=== PATIENT | male | born 1960 ===

== ENCOUNTER 2017-06-18 07:53 | Day surgery (SDC) | payer BC ==
[2017-06-14 18:28] VITALS: BMI 28.5
[~2017-06-18 07:53] MED LIST: LACTATED RINGERS 1,000 ML IV SCH
[2017-06-18 08:16] VITALS: RESP 16; TEMP 98.1
[2017-06-18] MEDS ORDERED: LIDOCAINE 1% 20 ML VIAL (10MG/ML) FOR IV START INTRADERMA ONE (08:32)
[2017-06-18] MEDS ORDERED: PROPOFOL 10 MG/ML 20 ML VIAL IV ONE (09:27)
[2017-06-18] MEDS ORDERED: LIDOCAINE 1% INJ 10MG/ML (20 ML MDV) ONE (09:27)
[2017-06-18] MEDS ORDERED: GLYCOPYRROLATE 0.2 MG/ML 2 ML VIAL ONE (09:27)
[2017-06-18 10:18] VITALS: PULSE 54
[2017-06-18 10:29] VITALS: BP 130/83
--- NOTE | 2017-06-18 13:32 | P.PCN ---
Date of Procedure: 06/18/17 Procedure(s) Performed: Procedure: Colonoscopy and biopsy. 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 Sigmoid diverticulosis. No polyps or cancer. Preparation: HalfLytely prep. Sedation: Was provided by anesthesia. Brief clinical history: The patient is a 57-year-old male who was diagnosed with proctosigmoiditis in the early 80s. Initial received Azulfidine and later asacol/delzicol with fair control of his symptoms. In the past, he was able to control his exacerbations by increasing the dose of his mesalamine preparations. This year he has been having issues since the beginning of the year and he has required oral steroids earlier this year and more recently he has been on hold an enema advanced without control of his symptoms. He is currently on that of the colon 400 mg 3 capsules 3 times a day as well as "enemas and has been having 2-4 bowel movements and has been seeing blood and mucus. His last colonoscopy was in November 2013 and that showed mild proctosigmoiditis distal to 40 cm. Procedure: With the patient on his left lateral decubitus position and after informed consent and adequate sedation the perianal area was inspected and it did not show any fissures or fistulas. There were no masses felt on digital rectal examination. The Olympus CFQ 160L video colonoscope was then inserted in the rectum in the usual fashion and advanced to the cecum. The distal 45 cm which includes the rectum and mid/distal sigmoid showed edema, erythema, friability, ulceration, exudation but no spontaneous bleeding. There were several diverticular orifices seen scattered in the sigmoid with no evidence of strictures or spontaneous bleeding. Proximal to 45 [address] the way to the cecum the mucosa appeared healthy. No polyps or tumors were seen. I obtained multiple biopsies in the sigmoid than the endoscope was retroflexed in the rectum before it was withdrawn. The patient tolerated the procedure well. Plan: I discussed the findings with the patient and his and we discussed in detail her concerns regarding diet and possible dietary and lifestyle triggers. I emphasized that based on his course since August last year he has not been responding to mesalamine and has been requiring steroids either orally or by enemas. I suggested that I see him in follow-up this month and review his course and biopsy results and consider starting immunosuppressants. Discussed role of Biologics as well. I will keep you updated on his progress.
== END 2017-06-18 10:45 | disposition home or self-care (01) ==
LOC: ORWHC2ENDO 07:53
DX: K51.80 Other ulcerative colitis without complications (principal); I10 Essential (primary) hypertension; E78.5 Hyperlipidemia, unspecified; Z79.899 Other long term (current) drug therapy
CPT/HCPCS: 88305; 45380; J2001; J2704

== ENCOUNTER → 2017-09-06 | Outpatient (CLI) | payer BC ==
[2017-09-06 15:51] LABS: Basophils # (A) 0.1 k/uL (0-0.2); Basophils % (A) 1 %; CH 30.5; CHCM 32.8; Eosinophils # (A) 0.1 k/uL (0-0.7); Eosinophils % (A) 1 %; HCT 45.2 % (39.0-53.0); HDW 2.32; HGB 14.5 gm/dL (13.0-17.5); Luc # (Auto) 0.18; Luc % (Auto) 2; Lymphocytes # (A) 2.9 k/uL (1.0-4.8); Lymphocytes % (A) 28 %; MCH 30.1 pg (25.0-35.0); MCHC 32.2 g/dL (31.0-37.0); MCV 93.5 fL (80.0-100.0); Mean Platelet Volume 7.7; Monocytes # (A) 0.7 k/uL (0-1.0); Monocytes % (A) 7 %; Neutrophils # (A) 6.3 k/uL (1.3-7.7); Neutrophils % (A) 62 %; RBC 4.84 m/uL (4.30-5.90); RDW 14.1 % (11.5-15.5); WBC 10.3 k/uL (3.8-10.6); WBC (Perox) 11.14
[2017-09-06 16:03] LABS: Bilirubin, Delta 0.1 mg/dL (0.0-0.2); Total Bilirubin 0.4 mg/dL (0.2-1.3); Total Protein 6.7 g/dL (6.3-8.2)
== END | disposition home or self-care (01) ==
LOC: LABWHC1 15:37
DX: K51.20 Ulcerative (chronic) proctitis without complications (principal)
CPT/HCPCS: 36415; 80076; 82150; 83690; 85025

== ENCOUNTER → 2017-10-10 | Outpatient (CLI) | payer BC ==
[2017-10-10 16:09] LABS: Basophils # (A) 0.1 k/uL (0-0.2); Basophils % (A) 1 %; Eosinophils # (A) 0.1 k/uL (0-0.7); Eosinophils % (A) 1 %; HCT 42.7 % (39.0-53.0); Lymphocytes # (A) 3.5 k/uL (1.0-4.8); Lymphocytes % (A) 28 %; MCH 29.4 pg (25.0-35.0); MCHC 32.8 g/dL (31.0-37.0); MCV 89.6 fL (80.0-100.0); Mean Platelet Volume 7.4; Monocytes # (A) 0.9 k/uL (0-1.0); Monocytes % (A) 7 %; Neutrophils # (A) 7.6 k/uL (1.3-7.7); Neutrophils % (A) 61 %; Platelet Count 333 k/uL (150-450); RBC 4.77 m/uL (4.30-5.90); RDW 14.4 % (11.5-15.5); WBC 12.4 k/uL (3.8-10.6)
[2017-10-10 16:19] LABS: ALT 62 U/L (21-72); AST 30 U/L (17-59); Albumin 4.1 g/dL (3.5-5.0); Alkaline Phosphatase 94 U/L (38-126); Anion Gap 9 mmol/L; Bilirubin, Delta 0.2 mg/dL (0.0-0.2); Bilirubin,Unconjugated 0.2 mg/dL (0.0-1.1); Blood Urea Nitrogen 21 mg/dL (9-20); Calcium 9.5 mg/dL (8.4-10.2); Carbon Dioxide 29 mmol/L (22-30); Chloride 104 mmol/L (98-107); Glucose 91 mg/dL (74-99); Sodium 142 mmol/L (137-145); Total Bilirubin 0.4 mg/dL (0.2-1.3); Total Protein 6.9 g/dL (6.3-8.2)
== END | disposition home or self-care (01) ==
LOC: LABWHC1 15:34
DX: K51.30 Ulcerative (chronic) rectosigmoiditis without complications (principal)
CPT/HCPCS: 36415; 80053; 82248; 85025

== ENCOUNTER → 2017-11-27 | Outpatient (CLI) | payer BC ==
[2017-11-27 16:50] LABS: HCT 41.7 % (39.0-53.0); HGB 14.3 gm/dL (13.0-17.5); MCH 30.5 pg (25.0-35.0); MCHC 34.3 g/dL (31.0-37.0); MCV 89.1 fL (80.0-100.0); Mean Platelet Volume 7.2; Platelet Count 318 k/uL (150-450); RBC 4.68 m/uL (4.30-5.90); RDW 13.1 % (11.5-15.5)
[2017-11-27 16:57] LABS: ALT 40 U/L (21-72); AST 30 U/L (17-59); Alkaline Phosphatase 67 U/L (38-126); Anion Gap 9 mmol/L; Blood Urea Nitrogen 21 mg/dL (9-20); C Reactive Protein <5.0 mg/L (<10.0); Calcium 9.4 mg/dL (8.4-10.2); Carbon Dioxide 29 mmol/L (22-30); Chloride 102 mmol/L (98-107); Glucose 91 mg/dL (74-99); Potassium 4.1 mmol/L (3.5-5.1); Sodium 140 mmol/L (137-145); Total Bilirubin 0.5 mg/dL (0.2-1.3); Total Protein 6.8 g/dL (6.3-8.2)
[2017-11-27 18:47] LABS: Erythrocyte Sedimentation Rate 4 mm/hr (0-15)
== END | disposition home or self-care (01) ==
LOC: LABWHC1 15:40
DX: K51.30 Ulcerative (chronic) rectosigmoiditis without complications (principal)
CPT/HCPCS: 36415; 80053; 85027; 85652; 86140

== ENCOUNTER → 2017-12-17 | Outpatient (CLI) | payer BC ==
[2017-12-17 17:42] LABS: HGB 14.1 gm/dL (13.0-17.5); MCH 30.6 pg (25.0-35.0); MCHC 34.4 g/dL (31.0-37.0); Mean Platelet Volume 7.3; Platelet Count 309 k/uL (150-450); RBC 4.61 m/uL (4.30-5.90); RDW 13.2 % (11.5-15.5); WBC 8.6 k/uL (3.8-10.6)
[2017-12-17 18:06] LABS: ALT 57 U/L (21-72); AST 43 U/L (17-59); Albumin 4.1 g/dL (3.5-5.0); Alkaline Phosphatase 69 U/L (38-126); Anion Gap 12 mmol/L; Blood Urea Nitrogen 17 mg/dL (9-20); C Reactive Protein <5.0 mg/L (<10.0); Calcium 9.5 mg/dL (8.4-10.2); Carbon Dioxide 28 mmol/L (22-30); Chloride 104 mmol/L (98-107); Glucose 90 mg/dL (74-99); Potassium 4.5 mmol/L (3.5-5.1); Sodium 144 mmol/L (137-145); Total Bilirubin 0.4 mg/dL (0.2-1.3)
[2017-12-17 18:55] LABS: Erythrocyte Sedimentation Rate 5 mm/hr (0-15)
== END | disposition home or self-care (01) ==
LOC: LABWHC1 17:19
DX: K51.30 Ulcerative (chronic) rectosigmoiditis without complications (principal)
CPT/HCPCS: 36415; 80053; 85027; 85652; 86140

== ENCOUNTER → 2018-01-16 | Outpatient (CLI) | payer BC ==
[2018-01-16 16:32] LABS: HCT 42.8 % (39.0-53.0); HGB 14.3 gm/dL (13.0-17.5); MCH 29.6 pg (25.0-35.0); MCHC 33.4 g/dL (31.0-37.0); MCV 88.6 fL (80.0-100.0); Mean Platelet Volume 7.5; Platelet Count 295 k/uL (150-450); RBC 4.83 m/uL (4.30-5.90); RDW 13.4 % (11.5-15.5); WBC 8.1 k/uL (3.8-10.6)
[2018-01-16 17:13] LABS: ALT 25 U/L (21-72); AST 23 U/L (17-59); Albumin 4.3 g/dL (3.5-5.0); Alkaline Phosphatase 62 U/L (38-126); Anion Gap 10 mmol/L; Blood Urea Nitrogen 16 mg/dL (9-20); C Reactive Protein <5.0 mg/L (<10.0); Calcium 9.5 mg/dL (8.4-10.2); Carbon Dioxide 30 mmol/L (22-30); Chloride 103 mmol/L (98-107); Cholesterol 160 mg/dL (<200); Glucose 93 mg/dL (74-99); HDL Cholesterol 54 mg/dL (40-60); LDL Cholesterol,Calculated 82 mg/dL (0-99); Potassium 4.6 mmol/L (3.5-5.1); Sodium 143 mmol/L (137-145); Total Bilirubin 0.7 mg/dL (0.2-1.3); Total Protein 7.1 g/dL (6.3-8.2); Triglycerides 122 mg/dL (<150)
[2018-01-16 17:40] LABS: PSA Annual Screen 0.74 ng/mL (0.00-4.00)
[2018-01-16 18:53] LABS: Erythrocyte Sedimentation Rate 3 mm/hr (0-15)
== END ==
LOC: LABWHC1 15:39
DX: E78.5 Hyperlipidemia, unspecified (principal); I10 Essential (primary) hypertension; K51.30 Ulcerative (chronic) rectosigmoiditis without complications; Z12.5 Encounter for screening for malignant neoplasm of prostate
CPT/HCPCS: 80061; 80053; 85652; 85027; 86140; 36415; G0103

== ENCOUNTER → 2018-04-23 | Outpatient (CLI) | payer BC ==
[2018-04-23 14:22] LABS: HCT 40.9 % (39.0-53.0); HGB 14.1 gm/dL (13.0-17.5); MCH 31.7 pg (25.0-35.0); MCHC 34.4 g/dL (31.0-37.0); MCV 92.1 fL (80.0-100.0); Mean Platelet Volume 6.8; Platelet Count 250 k/uL (150-450); RBC 4.44 m/uL (4.30-5.90); RDW 13.6 % (11.5-15.5); WBC 5.9 k/uL (3.8-10.6)
[2018-04-23 14:37] LABS: ALT 40 U/L (21-72); AST 28 U/L (17-59); Alkaline Phosphatase 63 U/L (38-126); Anion Gap 8 mmol/L; Blood Urea Nitrogen 18 mg/dL (9-20); Calcium 9.2 mg/dL (8.4-10.2); Carbon Dioxide 26 mmol/L (22-30); Chloride 107 mmol/L (98-107); Glucose 110 mg/dL (74-99); Potassium 4.5 mmol/L (3.5-5.1); Sodium 141 mmol/L (137-145); Total Bilirubin 0.4 mg/dL (0.2-1.3); Total Protein 6.8 g/dL (6.3-8.2)
== END | disposition home or self-care (01) ==
LOC: LABWHC1 13:33
DX: K51.30 Ulcerative (chronic) rectosigmoiditis without complications (principal)
CPT/HCPCS: 36415; 80053; 85027

== ENCOUNTER 2018-08-11 13:28 | Observation (INO) | payer BC ==
[2018-08-11 13:36] VITALS: RESP 16
[2018-08-11] MEDS ORDERED: MORPHINE SULFATE 2 MG/ML SYRINGE IVP STA ×2 (14:23→15:30)
[2018-08-11] MEDS ORDERED: DIAZEPAM 5 MG/ML 2 ML INJ IVP STA ×2 (14:23→16:38)
--- NOTE | 2018-08-11 14:35 | ED ---
Back Pain HPI - General Chief Complaint: Back Pain/Injury Stated Complaint: Back Pain Source: patient Limitations: no limitations - History of Present Illness Initial Comments: This is a 58-year-old male past medical history of hypertension, hyperlipidemia and ulcerative colitis presenting today for chief complaint of "pulled my back out", he states that yesterday he grabbed a picked up a large cabinent, he didnt note much pain at that time. Today pt was in the left when he down to grab a 20 pound box, he states when he stood up he noticed a very sharp pain in his lower back and muscle spasms. He set the box down. Pt states he was able to walk in the house with help of his son. He attempted to lie flat in the bed, however he was unable to get up due to the pain in the lumbar spine, he states that every so often there are spasms in the lumbar spine and a sharp shooting pain in the right LE. Pt denies loss of bowel/bladder control, numbness/ parathesias of the LE, or muscle weakness of the LE, hx of cancer, falling or trauma to the back. Remainder of ROS (-), patient denies any recent fever, chills, shortness of breath, chest pain, abdominal pain, numbness or tingling, dysuria or hematuria, constipation or diarrhea, headaches or visual changes, or any other complaints. Pt was brought to the ER via EMS due to the pain in the back/spasms. Upon arrival pt VS stable. - Related Data Home Medications Medication Instructions Recorded Confirmed Bisoprolol-Hctz 5-6.25 mg [Ziac 1 tab PO DAILY 06/14/17 08/11/18 5-6.25] Mesalamine [Delzicol] 800 mg PO BID 06/14/17 08/11/18 Simvastatin [Zocor] 20 mg PO HS 06/14/17 08/11/18 Cholecalciferol [Vitamin D3] 1,000 unit PO DAILY 08/11/18 08/11/18 azaTHIOprine [Imuran] 150 mg PO DAILY 08/11/18 08/11/18 Allergies Allergy/AdvReac Type Severity Reaction Status Date / Time No Known Allergies Allergy Verified 08/11/18 20:13 Review of Systems ROS Statement: Those systems with pertinent positive or pertinent negative responses have been documented in the HPI. ROS Other: All systems not noted in ROS Statement are negative. Constitutional: Denies: fever, chills, night sweats ENT: Denies: ear pain, throat pain Respiratory: Denies: cough, dyspnea, wheezes Cardiovascular: Denies: chest pain, palpitations Endocrine: Denies: as per HPI Gastrointestinal: Reports: nausea (pain so bad at times causes nausea). Denies : abdominal pain, vomiting, diarrhea, constipation, hematemesis Genitourinary: Denies: urgency, dysuria, frequency, discharge Musculoskeletal: Reports: back pain (lower back pain/spasms) Neurological: Denies: headache, weakness, numbness, paresthesias, confusion, abnormal gait Past Medical History Past Medical History: GI Bleed, Hyperlipidemia, Hypertension Additional Past Medical History / Comment(s): ULCERATIVE COLITIS, HAVING FLARE UP RECENTLY. History of Any Multi-Drug Resistant Organisms: None Reported Additional Past Surgical History / Comment(s): COLONOSCOPIES. Past Anesthesia/Blood Transfusion Reactions: No Reported Reaction Smoking Status: Former smoker - Past Family History Mother Family Medical History: No Reported History General Exam - General Exam Comments Initial Comments: General: The patient is awake and alert, in no distress, and does not appear acutely ill. Eye: Pupils are equal, round and reactive to light, extra-ocular movements are intact. No nystagmus. There is normal conjunctiva bilaterally. No signs of icterus. Ears, nose, mouth and throat: There are moist mucous membranes and no oral lesions. Neck: The neck is supple, there is no tenderness or JVD. Cardiovascular: There is a regular rate and rhythm. No murmur, rub or gallop is appreciated. Respiratory: Lungs are clear to auscultation, respirations are non-labored, breath sounds are equal. No wheezes, stridor, rales, or rhonchi. Gastrointestinal: Soft, non-distended, non-tender abdomen without masses or organomegaly noted. There is no rebound or guarding present. No CVA tenderness. Bowel sounds are unremarkable. Musculoskeletal: No bruising ecchymosis. Pt refuses to range at his lumbar spine secondary to muscle spasm, there is right sided low back tenderness with any ROM. No midline tenderness to palpation of the lumbar/thoracic spine. Strength 5/5 of the LE equally b/l. Sensation intact of the LE equally b/l including the saddle region. DP pulses equal bilaterally 2+. Rectal tone WNL. + 2/5 DTR of the LE, no evidence of myoclonus. Neurological: A&O x 3. CN II-XII intact, There are no obvious motor or sensory deficits. Coordination appears grossly intact. Speech is normal. Skin: Skin is warm and dry and no rashes or lesions are noted. Psychiatric: Cooperative, appropriate mood & affect, normal judgment. Limitations: no limitations Course Vital Signs 08/11/18 08/11/18 08/11/18 13:28 17:14 19:29 Temperature 99 F 98.2 F Pulse Rate 48 L 60 82 Respiratory 16 16 16 Rate Blood Pressure 151/79 121/79 124/74 O2 Sat by Pulse 97 94 L 95 Oximetry 08/11/18 20:00 Temperature Pulse Rate Respiratory 18 Rate Blood Pressure O2 Sat by Pulse Oximetry - Reevaluation(s) Reevaluation #1: Pt now able to bend at the knees without back spasm, improvement from initial exam 08/11/18 Reevaluation #2: Improvement, pt is able to bend knees toward chest without muscle spasm 08/11/18 Medical Decision Making - Medical Decision Making 58yo with cc of low back pain and muscle spasms after lifting box earlier this afternoon. Pt took zanaflex and ibuprofen earlier in the AM. Upon arrival, pt appeared well, however he did have episode of spasms with lasted <1 minute in his lumbar spine. Pt given 5mg IV valium and 2mg morphine for pain mgmt. Pt continued to experience symptoms with flexion at the hip. Given another 5mg IV valium and morphine. Upon physical examination there are no signs worrisome for cauda equina this time, also pt rectal tone WNL and pt is urinating without difficulty. I can palpate a right sided muscle spasms when pt is experiencing symptoms. Patient still continued to have systems despite Valium and morphine, he was given Flexeril and Toradol. Patient went to CT which revealed small bulge vs small herniation at L5-S1 no noted spinal stenosis. All incidental findings were discussed with patient. Upon reeavluation pt states that he is able to move knees toward chest, improvement from initial exam. At this time pt continues to refuse to walk due to muscle spasm, there is no muscle weakness. Pt will be admitted to observation to Dr. Makim, i spoke with Dr. Carrera who gave no further recommendations stating he will evaluate pt in the morning. Pt was transferred to the floor in stable condition with improvement of symptoms. Pt was agreeable with admission for intractable muscle spasms. Denied questions at this time. Case discussed with both Dr. Horner and Dr. De La Fuente prior to admission who agreed with impression and plan. - Lab Data Result diagrams: 08/11/18 18:03 08/11/18 18:03 Lab Results 08/11/18 08/11/18 Range/Units 18:03 18:03 WBC 9.2 (3.8-10.6) k/uL RBC 4.73 (4.30-5.90) m/uL Hgb 14.8 (13.0-17.5) gm/dL Hct 42.6 (39.0-53.0) % MCV 89.9 (80.0-100.0) fL MCH 31.3 (25.0-35.0) pg MCHC 34.8 (31.0-37.0) g/dL RDW 13.2 (11.5-15.5) % Plt Count 232 (150-450) k/uL Neutrophils % 76 % Lymphocytes % 14 % Monocytes % 8 % Eosinophils % 1 % Basophils % 0 % Neutrophils # 7.0 (1.3-7.7) k/uL Lymphocytes # 1.3 (1.0-4.8) k/uL Monocytes # 0.7 (0-1.0) k/uL Eosinophils # 0.1 (0-0.7) k/uL Basophils # 0.0 (0-0.2) k/uL Sodium 139 (137-145) mmol/L Potassium 4.4 (3.5-5.1) mmol/L Chloride 108 H (98-107) mmol/L Carbon Dioxide 24 (22-30) mmol/L Anion Gap 7 mmol/L BUN 19 (9-20) mg/dL Creatinine 0.98 (0.66-1.25) mg/dL Est GFR (CKD-EPI)AfAm >90 (>60 ml/min/1.73 sqM) Est GFR (CKD-EPI)NonAf 85 (>60 ml/min/1.73 sqM) Glucose 108 H (74-99) mg/dL Calcium 9.1 (8.4-10.2) mg/dL Total Bilirubin 0.9 (0.2-1.3) mg/dL AST 27 (17-59) U/L ALT 31 (21-72) U/L Alkaline Phosphatase 49 (38-126) U/L Total Protein 6.7 (6.3-8.2) g/dL Albumin 3.7 (3.5-5.0) g/dL Disposition Clinical Impression: Low back strain, Intractable muscle spasm, Intractable back pain Disposition: ADMITTED IP TO THIS [facility] Condition: Stable Is patient prescribed a controlled substance at d/c from ED?: No Time of Disposition: 19:35 Decision to Admit Reason: Admit from EC Decision Date: 08/11/18 Decision Time: 19:35
--- NOTE | 2018-08-11 15:05 | XR ---
EXAMINATION TYPE: XR lumbar spine 2 or 3V DATE OF EXAM: 08/11/2018 CLINICAL HISTORY: Low back pain after lifting injury TECHNIQUE: Frontal and lateral images of the lumbar spine are obtained. COMPARISON: None FINDINGS: There are 5 lumbar type vertebral bodies identified. There is very minimal retrolisthesis of L2 on L3. Very mild levoscoliotic curvature of the thoracolumbar junction is noted. The remainder of the lumbar spine shows satisfactory alignment without evidence of acute fracture or dislocation. V ertebral body heights and disk space heights are within normal limits. Mild multilevel degenerative c hanges of the lumbar spine are seen as small anterior and lateral osteophytes at the L1-L5 vertebral levels. The overlying soft tissue appears unremarkable. IMPRESSION: No acute fracture is seen in the lumbar spine. Minimal retrolisthesis of L2 on L3, likel y on a degenerative basis. Mild multilevel degenerative changes of the lumbar spine.
[2018-08-11] MEDS ORDERED: KETOROLAC 30 MG/ML 1 ML VIAL IVP STA (16:43)
[2018-08-11 18:15] LABS: Basophils % (A) 0 %; Eosinophils # (A) 0.1 k/uL (0-0.7); Eosinophils % (A) 1 %; HCT 42.6 % (39.0-53.0); HGB 14.8 gm/dL (13.0-17.5); Lymphocytes # (A) 1.3 k/uL (1.0-4.8); Lymphocytes % (A) 14 %; MCH 31.3 pg (25.0-35.0); MCHC 34.8 g/dL (31.0-37.0); MCV 89.9 fL (80.0-100.0); Monocytes # (A) 0.7 k/uL (0-1.0); Monocytes % (A) 8 %; Neutrophils % (A) 76 %; Platelet Count 232 k/uL (150-450); RBC 4.73 m/uL (4.30-5.90); RDW 13.2 % (11.5-15.5); WBC 9.2 k/uL (3.8-10.6)
[2018-08-11 18:41] LABS: ALT 31 U/L (21-72); AST 27 U/L (17-59); Albumin 3.7 g/dL (3.5-5.0); Alkaline Phosphatase 49 U/L (38-126); Anion Gap 7 mmol/L; Blood Urea Nitrogen 19 mg/dL (9-20); Calcium 9.1 mg/dL (8.4-10.2); Carbon Dioxide 24 mmol/L (22-30); Chloride 108 mmol/L (98-107); Glucose 108 mg/dL (74-99); Potassium 4.4 mmol/L (3.5-5.1); Sodium 139 mmol/L (137-145); Total Bilirubin 0.9 mg/dL (0.2-1.3); Total Protein 6.7 g/dL (6.3-8.2)
--- NOTE | 2018-08-11 18:42 | CT ---
EXAMINATION TYPE: CT lumbar spine wo con DATE OF EXAM: 08/11/2018 6:32 PM COMPARISON: Lumbar spine dated 08/11/2018 HISTORY: low back pain, no injury CT DLP: 1045 mGycm Automated exposure control for dose reduction was used. TECHNIQUE: Unenhanced CT of the lumbar spine was performed. Bone and soft tissue window settings are submitted as well as coronal and sagittal reconstructions. FINDINGS: The lumbar spine vertebral bodies maintain normal vertebral body heights and alignment. Min imal multilevel degenerative changes of the lumbar spine are displayed as small anterior osteophytes and endplate sclerosis as well as lower lumbar spine facet arthropathy. The previously seen minimal r etrolisthesis of L2 on L3 with positional and not redemonstrated on CT. A very mild levoscoliotic cur vature of the lumbar spine is present. Minimal bibasilar dependent atelectasis is seen at the lung bases. Nonobstructing punctate 2 mm right upper pole renal calculus is seen. Mild atherosclerosis of the abdominal aorta and its branches are noted. L1-L2: Normal disc space height. No disc herniation protrusion or central stenosis. No facet joint arthropathy. No evidence for foraminal encroachment. L2-L3: There is a small broad-based disc bulge resulting in mild bilateral neural foraminal narrowing . No spinal canal stenosis. Recommended phenomenon is seen. L3-L4: There is a small broad-based disc bulge and minimal facet arthropathy resulting in mild bilate ral neural foraminal narrowing. No spinal canal stenosis. L4-L5: Vacuum disc phenomenon is seen. There is a broad-based disc bulge and facet arthropathy result ing in moderate left and [id number] right neural foraminal narrowing. No discrete spinal canal stenosis. L5-S1: There is a disc bulge versus small central disc herniation that would be better evaluated with MRI and mild facet arthropathy resulting in mild left neural foraminal narrowing. Spinal canal and r ight neural foramen are patent. IMPRESSION: 1. No evidence of acute fracture or malalignment of the lumbar spine. The previously seen minimal ret rolisthesis of L2 on L3 on the radiographs of 08/11/2018 was positional and not redemonstrated. 2. Mild multilevel degenerative changes of the lumbar spine. No evidence of spinal canal stenosis on CT. Disc bulge versus small disc herniation at L5-S1 without spinal canal stenosis. This would be bet ter evaluated with MRI. 3. Incidentally seen punctate nonobstructing right renal calculus.
[2018-08-11] MEDS ORDERED: DEXAMETHASONE SOD PHOSPHATE 4 MG/ML 1 ML VIAL IV STA (19:26)
[2018-08-11] MEDS ORDERED: ACETAMINOPHEN TAB 325 MG TAB PO PRN (19:27)
[2018-08-11] MEDS ORDERED: NALOXONE 0.4 MG/ML 1 ML VIAL IV PRN (19:27)
[2018-08-11] MEDS ORDERED: MORPHINE SULFATE 4 MG/ML SYRINGE IV PRN (19:27)
[2018-08-11] MEDS ORDERED: SODIUM CHLORIDE 0.9% 1,000 ML IV ONE (19:30)
[2018-08-11 21:50] VITALS: BMI 31.1
[2018-08-12] MEDS: CYCLOBENZAPRINE 10 MG TAB PO SCH ×4 (00:10→23:21)
[2018-08-12] MEDS: HYDROmorphone 1 MG/ML 1 ML SYRINGE IVP PRN ×2 (00:10→12:34)
[2018-08-12] MEDS: methylPREDNISolone SOD SUCCI 125 MG/2 ML VIAL IV SCH ×3 (09:22→23:29)
--- NOTE | 2018-08-12 10:56 | P.HPOR ---
<ItaloJayshree - Last Filed: 08/12/18 10:47> History of Present Illness H&P Date: 08/12/18 Chief Complaint: Low back pain and lower extremity radiculopathy This is a 58-year-old male who sustained injury to his low back when he was lifting a 100 pound chest. He states that he had no symptoms immediately after lifting the chest. However, he then lifted a 20 pound box of [place] [employer] and felt immediate pain down his back and into his legs. He was unable to move. He was able to get down the ladder with help with his son. He came to the emergency department for evaluation. He is admitted to our service for further evaluation and pain management. He denies bowel or bladder dysfunction. He denies numbness or tingling down the legs. He has been unable to ambulate since his admission secondary to pain. Past Medical History Past Medical History: GI Bleed, Hyperlipidemia, Hypertension Additional Past Medical History / Comment(s): ULCERATIVE COLITIS, HAVING FLARE UP RECENTLY. History of Any Multi-Drug Resistant Organisms: None Reported Past Surgical History: No Surgical Hx Reported Additional Past Surgical History / Comment(s): COLONOSCOPIES. Past Anesthesia/Blood Transfusion Reactions: No Reported Reaction Smoking Status: Former smoker - Past Family History Mother Family Medical History: No Reported History Medications and Allergies Home Medications Medication Instructions Recorded Confirmed Type Bisoprolol-Hctz 5-6.25 mg [Ziac 1 tab PO DAILY 06/14/17 08/11/18 History 5-6.25] Mesalamine [Delzicol] 800 mg PO BID 06/14/17 08/11/18 History Simvastatin [Zocor] 20 mg PO HS 06/14/17 08/11/18 History Cholecalciferol [Vitamin D3] 1,000 unit PO DAILY 08/11/18 08/11/18 History azaTHIOprine [Imuran] 150 mg PO DAILY 08/11/18 08/11/18 History Allergies Allergy/AdvReac Type Severity Reaction Status Date / Time No Known Allergies Allergy Verified 08/11/18 20:13 Physical Examination This is a pleasant 58-year-old male in no acute distress. He is alert and oriented 3. Exam of the head neck reveal no obvious deformity. He has full cervical spine motion without difficulty or pain. Exam the upper extremities is unremarkable. He has full motion of the upper extremities at the shoulder, elbow, wrist and fingers. Neurovascular status to the upper extremities is intact. Exam of the low back reveals no obvious deformity. There is mild pain on palpation about the lower lumbar spine and paraspinal musculature. Exam of the lower extremities reveals no obvious deformity. There is no pain with log roll of either hip. He is able to straight leg raise off the bed independently with significant pain. He has full dorsiflexion of the foot and ankle bilaterally with +4/5 strength. Plantar flexion is +4/5. Pedal pulses are +2/4. Neurovascular status to the lower extremities is intact. Results X-ray and CT of the lumbar spine reveal mild degenerative changes throughout. Fairly well maintained disc spaces. No obvious canal stenosis noted. - Labs Labs: Abnormal Lab Results - Last 24 Hours (Table) 08/11/18 Range/Units 18:03 Chloride 108 H (98-107) mmol/L Glucose 108 H (74-99) mg/dL H & H 08/11/18 Range/Units 18:03 Hgb 14.8 (13.0-17.5) gm/dL Hct 42.6 (39.0-53.0) % Result Diagrams: 08/11/18 18:03 08/11/18 18:03 Assessment and Plan (1) Intractable back pain Current Visit: Yes Status: Acute Code(s): M54.9 - DORSALGIA, UNSPECIFIED SNOMED Code(s): 098992144 (2) Intractable muscle spasm Current Visit: Yes Status: Acute Code(s): M62.40 - CONTRACTURE OF MUSCLE, UNSPECIFIED SITE SNOMED Code(s): 17338114 (3) Low back strain Current Visit: Yes Status: Acute Code(s): S39.012A - STRAIN OF MUSCLE, FASCIA AND TENDON OF LOWER BACK, INIT SNOMED Code(s): 970888927 Plan: The clinical and x-ray findings are discussed the patient and his . It is recommended he have an MRI for further evaluation. I have added Solu-Medrol 80 mg IV every 8 hours 3 doses. We will await MRI findings. We'll consult Dr. Gandhi for evaluation. <Daniel Gandhi - Last Filed: 08/12/18 16:32> Physical Examination Osteopathic Statement: *. No significant issues noted on an osteopathic structural exam other than those noted in the History and Physical/Consult. Results - Labs Labs: Abnormal Lab Results - Last 24 Hours (Table) 08/11/18 Range/Units 18:03 Chloride 108 H (98-107) mmol/L Glucose 108 H (74-99) mg/dL H & H 08/11/18 Range/Units 18:03 Hgb 14.8 (13.0-17.5) gm/dL Hct 42.6 (39.0-53.0) % Result Diagrams: 08/11/18 18:03 08/11/18 18:03 Assessment and Plan Plan: The patient was seen and examined today at bedside. I reviewed the above dictation. The patient underwent his MRI of his lumbar spine and I reviewed the images and the report as well. Low back pain with right lower extremity radiculopathy Herniated nucleus pulposus L2 3 which appears new Degenerative disc disease L4 5 with left foraminal encroachment Herniated nucleus pulposis L2-3 on the right which correlates well with his right lower extremity radiculopathy I think the patient's new acute symptoms stem from an acute injury with new disc herniation at L2-3. He is a right paracentral disc herniation as seen on MRI at the level LII-III correlates with his new symptoms in his right extremity and right thigh. He is unable to get up and mobilize due to his pain but his strength appears to be intact while he is in bed. He is not having any evidence of cauda equina syndrome. I think it is okay for him to start to mobilize and will have physical therapy see him to try to increase his mobilization. I would also like pain management to consult on him to Determine the possibility of interventional pain management for epidural steroid injection at L2-3. He has made some progress with his management with IV steroids and feels that he is making some improvement. He still having great copiously trying to move in bed or try to get up and we'll see if this is improved with physical therapy. Height is difficult to determine if he would be safe with discharged home today but he may be able to consider discharge home tomorrow if he is safe with getting up with physical therapy and the pain is better controlled. We will continue to follow them closely. We do not plan acute surgical intervention as he is essentially neurologically stable at this point but he would be a candidate for laminectomy discectomy L2- 3 on outpatient basis if conservative measures were to fail. I do not think that is able to work at this point and he will need off work status the time being.
--- NOTE | 2018-08-12 12:17 | MR ---
EXAMINATION TYPE: MR lumbar spine wo con DATE OF EXAM: 08/12/2018 COMPARISON: Prior CT lumbar spine and x-ray from yesterday. HISTORY: Intractable low back pain and radiculopathy TECHNIQUE: Multiplanar, multisequence imaging of the lumbar spine is performed without IV contrast. FINDINGS: Sagittal images of the lumbar spine show vertebral body heights and alignment to remain sat isfactory. Multilevel disc desiccation is present. There is mild to moderate disc space narrowing L2- L3 and L4-L5 levels redemonstrated. Posterior disc herniations are seen L2-L3 and L5-S1 levels on sag ittal images. Increased signal posteriorly consistent with annular tear is noted L5-S1 level. The con us medullaris is normal in position and signal ending at L1 level. Some heterogeneous endplate change s most prominent anterior L2-L3 level with Modic type II change is noted. Axial images show the T12-L1 level to appear within normal limits. Axial images at the L1-L2 level shows focal left foraminal/extra foraminal disc protrusion with annul ar tear axial image 23 causing asymmetric mild left-sided neural foraminal narrowing. Right-sided kendell ral foramen is patent. Axial images at the L2-L3 level show moderate broad disc bulge with more prominent right paracentral/ foraminal component seen best sagittal image 8 and axial image 17. There is effacement of the lateral recess and probable central right L3 nerve. There is mild bilateral anterior inferior neural foramin al narrowing seen. Axial images at the L3-L4 level show mild facet degenerative changes and mild to moderate broad disc bulge but spinal canal is preserved and bilateral neural foramina are patent. Axial images at the L4-L5 level show mild facet degenerative changes bilaterally. There is broad-base d posterior disc protrusion minimally effacing anterior thecal sac. There is annular tear is seen. Th ere is moderate left and mild right-sided anterior inferior neural foraminal narrowing. Axial images at the L5-S1 level shows central disc protrusion but spinal canal is preserved. Bilatera l neural foramina are patent. Some cortical thinning in both kidneys is seen presumed product of chronic medical renal disease. IMPRESSION: Multilevel degenerative changes in lumbar spine as detailed above. Most prominent finding s noted L2-L3 and L4-L5 level.
--- NOTE | 2018-08-13 01:43 | CONS ---
CONSULTATION REASON FOR CONSULTATION: Medical evaluation. HISTORY OF PRESENT ILLNESS: This gentleman was seen this morning with a complaint of lower back pain. The patient was admitted to the hospital last night. He presented to the hospital via ambulance because he had severe pain. The patient said his pain started the day prior when he lifted a relatively heavy object. The patient had some discomfort. He moved around without much difficulty except for some tightness. Next day he did lift a very light weight again, and this made his back practically going into spasm, and he felt diaphoretic and near-syncopal. Patient was brought into the emergency room with severe pain. The patient's son, who is a physician, was with him at home and recommended that the patient be seen in the ER. They evaluated him in the emergency room, including a CT scan. There are no fractures. There are no spinal cord compression symptoms. The patient lying in bed is relatively comfortable. He cannot sit up because it causes him severe pain. The pain is more of a spasmodic pain, like a severe muscle cramp. He has no radicular pain symptoms. There are no other associated symptoms of nausea or vomiting. He has equal femoral pulses with no bruits. The patient has received some pain medications and muscle relaxers and at the time of examination is comfortable. PAST MEDICAL HISTORY: Past medical history is significant for: 1. Ulcerative colitis since age 18. 2. History of hypertension. 3. Hyperlipidemia. PAST SURGICAL HISTORY: None. SOCIAL HISTORY: Patient is a smoker who continues to smoke 1 to 1-1/2 packs per day; for about 16 years. Alcohol -- about 3 glasses of wine twice a week. FAMILY MEDICAL HISTORY: Father, age 81, with history of coronary artery disease. Mother, age 78, with history of hypertension. Two brothers, 60 and 56, both with history of hypertension. One brother, 44, and sister, 54, in good health. He has a son 30 years of age and a daughter 26 years of age, in good health. REVIEW OF SYSTEMS: NEURO: Denies any headaches, dizziness. No double vision or blurred vision. Had symptoms of near-syncope with the pain. PSYCH: No anxiety or depression. CARDIAC: Denies chest pain, angina, palpitation. RESPIRATORY: Denies shortness of breath, cough, hemoptysis. GI: No nausea, vomiting, abdominal pain, diarrhea. History of ulcerative colitis with frequent bowel movements. No blood in the stool. : No symptoms of dysuria, hematuria. Has been voiding freely. EXTREMITIES: Denies pain, edema. Present complaint of lower back pain. CONSTITUTIONAL: No fever, chills. HEMATOLOGICAL: No anemia or bleeding disorder. ENDOCRINE: No history of diabetes mellitus. SKIN: No rashes. PHYSICAL EXAMINATION: Pleasant gentleman, at present in no distress as long as he stays still in bed. Vital signs recorded earlier were temperature 97.6, pulse 62, respirations 16, blood pressure 118/70, pulse ox of 92% on room air. HEENT: Normocephalic. NECK: Supple. No JVD. Chest examination is clear to auscultation and percussion. CARDIAC: Normal S1, S2 with no gallops, murmurs, rubs. ABDOMEN: Soft. Bowel sounds normal. No organomegaly. No abdominal bruits. Femorals have good pulses and no bruits. Extremities reveal no edema. Good pulses, both upper and lower extremities. Neurologically, awake, alert, oriented x3. Cranial nerves 2-12 normal. Equal hand grasp bilaterally. Lower extremities have adequate dorsiflexion and extension. The patient is able to lift the legs off the bed to about 20 to 30 degrees, which at that time does cause some lower back pain. Deep tendon reflexes are normal at both the knees and ankles. LABORATORY ASSESSMENT: CBC was normal. Chemistry was normal. Random glucose of 108. The patient had a CT scan of the lumbar spine which revealed no fractures. CT scan showed DJD changes, non-obstructing right renal calculus; has a disc bulge versus small disc herniation at L5-S1. ASSESSMENT: 1. Lumbosacral back pain. Suspect more muscular spasm type. 2. History of ulcerative colitis. 3. Hypertension, on medical therapy. PLAN: Resume home medications. The patient is being managed by orthopedic physicians regarding low back pain. They have ordered an MRI. Patient admitted to Dr. Carrera; however, the patient will be evaluated by Dr. Gandhi, orthopedic back surgeon. The patient is going to be placed on steroids, muscle relaxants and pain medication. Prognosis remains guarded. MMODL / IJN: [id number] /
[2018-08-13 05:49] VITALS: BP 126/70; PULSE 70; TEMP 98
[2018-08-13] MEDS ORDERED: HEPARIN SODIUM,PORCINE 5,000 UNIT/ML 1 ML VIAL SQ SCH (08:00)
--- NOTE | 2018-08-13 08:16 | P.DS ---
Providers Date of admission: 08/11/18 19:35 Attending physician: Eugene Carrera Consults: 08/12/18 10:07 Consult Physician Stat Consulting Provider: Paco Tinajero Consult Reason/Comments: Medical Management Do you want consulting provider notified?: Yes 08/12/18 16:28 Consult Physician Urgent Consulting Provider: Adarsh Rosario Consult Reason/Comments: Possible epidural steroid injection L2-3 for herniated disc Do you want consulting provider notified?: Yes 08/13/18 07:32 Consult Physician Urgent Consulting Provider: Daniel Gandhi Consult Reason/Comments: Eval lumbar radiculopathy Do you want consulting provider notified?: Yes Primary care physician: Paco Tinajero [facility] Course: Patient is seen and examined on this date. He says that his back pain is settling down and he is back toward his baseline. He has been able to get up and out of bed and up to the bathroom on his own. He is voiding freely. He denies weakness in his lower extremity. Denies any chest pain shortness of breath. On exam Is alert and oriented 3. Afebrile stable vital signs. His back is nontender to palpation. His abdomen soft nontender. He has some paravertebral spasm in his low back. His lower extremities have sustained dorsal flexion plantar flexion and EHL intact. He has a negative straight leg raise currently. He has no saddle paresthesia. Assessment and plan The patient was initially admitted for intractable low back pain. His found have a disc herniation which appears to be new and acute L2-3. He has chronic degenerative disc disease particularly at L4 5 there is disc protrusion His lower extremity radiculopathy Patient has been making progress with conservative management in the hospital. We had asked interventional pain management to see him but they've not yet seen him. He is making progress with oral medications and IV steroids. I think we can continue to convert him over to oral medications and continue his mobilization. He is making steady progress and I think he is okay for discharge home with. Conservative management and an oral tapering dose of steroid. We will also provide him a prescription for muscle relaxants to use at home as well and pain medication for acute pain. I think it is okay for discharge home today and I can see him back in approximately 1 week's time for recheck evaluation. We will arrange for interventional pain management follow- up as well. The patient is unable to work at this point and we will give him an off work note as well at least until he follows up with us. I discussed this with him and his and they are agreeable. Patient Condition at Discharge: Stable Plan - Discharge Summary Discharge Rx Participant: No New Discharge Prescriptions: New Cyclobenzaprine [Flexeril] 10 mg PO TID #60 tab HYDROcodone/APAP 5-325MG [[place] 5] 1 - 2 each PO Q6HR PRN #12 tab PRN Reason: Pain predniSONE 20 mg PO DIRECTED #24 tab No Action Mesalamine [Delzicol] 800 mg PO BID Simvastatin [Zocor] 20 mg PO HS Bisoprolol-Hctz 5-6.25 mg [Ziac 5-6.25] 1 tab PO DAILY azaTHIOprine [Imuran] 150 mg PO DAILY Cholecalciferol [Vitamin D3] 1,000 unit PO DAILY Discharge Medication List Bisoprolol-Hctz 5-6.25 mg [Ziac 5-6.25] 1 tab PO DAILY 06/14/17 [History] Mesalamine [Delzicol] 800 mg PO BID 06/14/17 [History] Simvastatin [Zocor] 20 mg PO HS 06/14/17 [History] Cholecalciferol [Vitamin D3] 1,000 unit PO DAILY 08/11/18 [History] azaTHIOprine [Imuran] 150 mg PO DAILY 08/11/18 [History] Cyclobenzaprine [Flexeril] 10 mg PO TID #60 tab 08/13/18 [Rx] HYDROcodone/APAP 5-325MG [[place] 5] 1 - 2 each PO Q6HR PRN #12 tab 08/13/18 [Rx] predniSONE 20 mg PO DIRECTED #24 tab 08/13/18 [Rx] Follow up Appointment(s)/Referral(s): Paco Tinajero MD [Primary Care Provider] - 1-2 days Daniel Gandhi DO [Doctor of Osteopathic Medicine] - 1 Week Patient Instructions/Handouts: Acute Low Back Pain (ED) Activity/Diet/Wound Care/Special Instructions: Patient is to be off work until follow-up at my office with Dr. Gandhi. We have given him a prescription to be off work due to his disc herniation L2-3. Avoid heavy or rigorous activity. No repetitive bending twisting or lifting. No lifting greater than 15 pounds. Patient was still lay down whenever at will May ambulate slowly as tolerated Discharge Disposition: HOME SELF-CARE
[2018-08-13] MEDS ORDERED: CHOLECALCIFEROL 1,000 UNIT TAB PO SCH (09:00)
[2018-08-13] MEDS ORDERED: BISOPROLOL-HCTZ 5-6.25 MG 1 EACH TAB PO SCH (09:00)
[2018-08-13] MEDS ORDERED: BALSALAZIDE DISODIUM 750 MG CAPSULE PO SCH (09:00)
[2018-08-13] MEDS ORDERED: azaTHIOprine 50 MG TAB PO SCH (09:00)
[2018-08-13] MEDS: CYCLOBENZAPRINE 10 MG TAB PO SCH (10:12)
[2018-08-13] MEDS ORDERED: ATORVASTATIN 10 MG TAB PO SCH (21:00)
== END 2018-08-13 11:35 | disposition home or self-care (01) ==
LOC: EC 13:28 → 3NMEDONC 19:35
PROVIDERS: ADMIT Orthopaedic Surgery; ATTEND Orthopaedic Surgery
DX: M51.16 Intervertebral disc disorders with radiculopathy, lumbar region (principal); M62.830 Muscle spasm of back; I10 Essential (primary) hypertension; E78.5 Hyperlipidemia, unspecified; K51.90 Ulcerative colitis, unspecified, without complications; R61 Generalized hyperhidrosis; R55 Syncope and collapse; R11.0 Nausea; F17.210 Nicotine dependence, cigarettes, uncomplicated; Z79.899 Other long term (current) drug therapy; X50.0XXA Overexertion from strenuous movement or load, initial encounter; Z87.19 Personal history of other diseases of the digestive system; Z82.49 Family history of ischemic heart disease and other diseases of the circulatory system
CPT/HCPCS: 96376 ×2; 96374; 96375; 99285; 36415; 97162; 80053; 85025; 72100; 72131; 72148; G0378 ×3; J1100; J2930; J3360; J1885; J2270; J1170

== ENCOUNTER → 2018-10-14 | Outpatient (CLI) | payer BC ==
[2018-10-14 08:43] LABS: HCT 42.5 % (39.0-53.0); HGB 14.3 gm/dL (13.0-17.5); MCH 31.3 pg (25.0-35.0); MCHC 33.7 g/dL (31.0-37.0); MCV 92.9 fL (80.0-100.0); Mean Platelet Volume 7.3; Platelet Count 260 k/uL (150-450); RBC 4.57 m/uL (4.30-5.90); RDW 13.7 % (11.5-15.5); WBC 7.3 k/uL (3.8-10.6)
[2018-10-14 10:24] LABS: Erythrocyte Sedimentation Rate 2 mm/hr (0-15)
[2018-10-14 17:54] LABS: ALT 36 U/L (10-49); AST 32 U/L (14-35); Alkaline Phosphatase 58 U/L (41-126); C Reactive Protein <0.4 mg/dL (0.0-0.8); Calcium 9.5 mg/dL (8.7-10.3); Carbon Dioxide 26.8 mmol/L (21.6-31.8); Chloride 105 mmol/L (96-109); Globulin 2.2 g/dL (1.6-3.3); Glucose 104 mg/dL (70-110); Potassium 4.3 mmol/L (3.5-5.5); Sodium 140 mmol/L (135-145); Total Protein 6.6 g/dL (6.2-8.2)
== END ==
LOC: LABWHC1 08:07
DX: K51.30 Ulcerative (chronic) rectosigmoiditis without complications (principal)
CPT/HCPCS: 36415; 80053; 82306; 85027; 85652; 86140

== ENCOUNTER 2019-01-20 08:19 | Day surgery (SDC) | payer BC ==
[2019-01-16 16:13] VITALS: BMI 30.5
[~2019-01-20 08:19] MED LIST changes: +LIDOCAINE 1% 20 ML VIAL (10MG/ML) FOR IV START INTRADERMA PRN
[2019-01-20 08:34] VITALS: TEMP 98.5
[2019-01-20] MEDS ORDERED: PROPOFOL 10 MG/ML 20 ML VIAL IV ONE (09:16)
[2019-01-20] MEDS ORDERED: LIDOCAINE 1% INJ 10MG/ML (20 ML MDV) ONE (09:16)
--- NOTE | 2019-01-20 09:58 | P.PCN ---
Date of Procedure: 01/20/19 Procedure(s) Performed: Procedure: Colonoscopy and biopsy. Preoperative diagnosis: History of proctosigmoiditis. Postoperative diagnosis: 1. 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 2. Sigmoid diverticulosis. 3. No polyps or cancer. Preparation: HalfLytely prep. Sedation: Was provided by anesthesia. 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 Initially, he received Azulfidine and later asacol/delzicol with fair control of his symptoms. In the past, he was able to control his exacerbations by increasing the dose of his mesalamine preparations. In 2017 he was having issues starting at the beginning of the year and he has required oral steroids and cortenema enema without control of his symptoms. He had a colonoscopy at that time that showed active proctosigmoiditis at which time he was started on Imuran therapy which he continues to take in addition to delzicol. His last office visit was in October of this year. He has been doing well taking Imuran 150 mg in the morning antalgic: 800 mg twice a day or 3 times a day. He reported having 2 formed stools each day sometimes history, mostly in the morning. Has no diarrhea or bleeding. This is part of his evaluation because of the duration of his illness to assess the healing and to rule out colon cancer. Procedure: With the patient on his left lateral decubitus position and after informed consent and adequate sedation the perianal area was inspected and it did not show any fissures or fistulas. There were no masses felt on digital rectal examination. The Olympus CFQ 160L video colonoscope was then inserted in the rectum in the usual fashion and advanced to the cecum. The distal 45 cm which includes the rectum and mid/distal sigmoid showed edema, erythema and mild, friability and ulcerations, but no exudation or spontaneous bleeding. There were several diverticular orifices seen scattered in the sigmoid with no evidence of strictures or spontaneous bleeding. Proximal to [address] the way to the cecum the mucosa appeared healthy. No polyps or tumors were seen. I obtained multiple biopsies in the sigmoid than the endoscope was retroflexed in the rectum before it was withdrawn. The patient tolerated the procedure well. Plan: The patient was reassured. Will continue with the current regimen. I will see him in follow-up in the office this summer and continue to make adjustments based on his clinical course. Because of the duration of his illness, I would continue to schedule colonoscopies every 2 years. He will follow up with you as planned and I will keep you updated on his progress.
[2019-01-20 10:14] VITALS: BP 122/76; PULSE 62; RESP 17
== END 2019-01-20 10:12 | disposition home or self-care (01) ==
LOC: ORWHC2ENDO 08:19
DX: K63.89 Other specified diseases of intestine (principal); K51.90 Ulcerative colitis, unspecified, without complications; K57.30 Diverticulosis of large intestine without perforation or abscess without bleeding; I10 Essential (primary) hypertension; E78.5 Hyperlipidemia, unspecified; Z87.891 Personal history of nicotine dependence; Z79.899 Other long term (current) drug therapy
CPT/HCPCS: 88305; 45380; J2001; J2704

== ENCOUNTER → 2019-05-28 | Outpatient (CLI) | payer BC ==
[2019-05-28 16:38] LABS: Basophils % (A) 1 %; Eosinophils # (A) 0.1 k/uL (0-0.7); Eosinophils % (A) 1 %; HCT 42.1 % (39.0-53.0); Lymphocytes # (A) 1.7 k/uL (1.0-4.8); Lymphocytes % (A) 27 %; MCH 31.4 pg (25.0-35.0); MCHC 33.2 g/dL (31.0-37.0); MCV 94.6 fL (80.0-100.0); Mean Platelet Volume 6.7; Monocytes # (A) 0.4 k/uL (0-1.0); Monocytes % (A) 6 %; Neutrophils # (A) 3.9 k/uL (1.3-7.7); Neutrophils % (A) 62 %; Platelet Count 265 k/uL (150-450); RBC 4.46 m/uL (4.30-5.90); RDW 13.2 % (11.5-15.5); WBC 6.4 k/uL (3.8-10.6)
[2019-05-28 23:06] LABS: Albumin 4.6 g/dL (3.80-4.90); Albumin/Globulin Ratio 2.09 (1.60-3.17); Bilirubin, Conjugated 0.3 mg/dL (0.20-0.40); Bilirubin,Unconjugated 0.5 mg/dL; Chol/HDL Ratio 2.83; Globulin 2.2 g/dL (1.6-3.3); LDL Cholesterol,Calculated 84.4 mg/dL (0.0-131.0); Total Bilirubin 0.8 mg/dL (0.3-1.2); Total Protein 6.8 g/dL (6.2-8.2); VLDL Calculation 21.6 mg/dL (5.00-40.00)
== END ==
LOC: LABWHC1 15:52
PROVIDERS: ATTEND Internal Medicine
DX: Z12.5 Encounter for screening for malignant neoplasm of prostate (principal); K51.30 Ulcerative (chronic) rectosigmoiditis without complications; E78.5 Hyperlipidemia, unspecified
CPT/HCPCS: 80061; 80076; 85025; 36415; G0103

== ENCOUNTER → 2020-10-07 | Outpatient (CLI) | payer BC ==
[2020-10-07 16:33] LABS: Basophils % (A) 0 %; Eosinophils # (A) 0.1 k/uL (0-0.7); Eosinophils % (A) 1 %; HCT 42.5 % (39.0-53.0); HGB 14.8 gm/dL (13.0-17.5); Lymphocytes # (A) 1.8 k/uL (1.0-4.8); Lymphocytes % (A) 28 %; MCHC 34.8 g/dL (31.0-37.0); MCV 94.8 fL (80.0-100.0); Monocytes # (A) 0.4 k/uL (0-1.0); Monocytes % (A) 7 %; Neutrophils # (A) 3.9 k/uL (1.3-7.7); Neutrophils % (A) 61 %; Platelet Count 247 k/uL (150-450); RBC 4.48 m/uL (4.30-5.90); RDW 12.9 % (11.5-15.5); WBC 6.3 k/uL (3.8-10.6)
[2020-10-08 04:10] LABS: ALT 25 U/L (10-49); AST 26 U/L (14-35); Alkaline Phosphatase 68 U/L (41-126); Bilirubin, Conjugated <0.20 mg/dL (0.20-0.40); Globulin 2.3 g/dL (1.6-3.3); Total Bilirubin 0.5 mg/dL (0.3-1.2); Total Protein 6.9 g/dL (6.2-8.2)
== END | disposition home or self-care (01) ==
LOC: LABWHC1 15:36
PROVIDERS: ATTEND Internal Medicine Gastroenterology
DX: K51.30 Ulcerative (chronic) rectosigmoiditis without complications (principal)
CPT/HCPCS: 36415; 80076; 85025

== ENCOUNTER 2020-12-17 07:50 | Day surgery (SDC) | payer BC ==
[2020-12-14 13:52] VITALS: BMI 31.1
[~2020-12-17 07:50] MED LIST changes: -LIDOCAINE 1% 20 ML VIAL (10MG/ML) FOR IV START INTRADERMA PRN
[2020-12-17 08:28] VITALS: RESP 16; TEMP 97.3
[2020-12-17] MEDS ORDERED: LIDOCAINE 1% (10MG/ML) FOR IV START INTRADERMA ONE (08:38)
[2020-12-17] MEDS ORDERED: PROPOFOL 10 MG/ML 20 ML VIAL IV ONE (08:55)
[2020-12-17] MEDS ORDERED: fentaNYL (PF) 50 MCG/ML 2 ML AMP ONE (08:55)
[2020-12-17] MEDS ORDERED: MIDAZOLAM 2 MG/2 ML VIAL ONE (08:55)
--- NOTE | 2020-12-17 09:11 | P.PCN ---
Date of Procedure: 12/17/20 Procedure(s) Performed: BRIEF HISTORY: Patient is a 60-year-old pleasant male scheduled for an elective colonoscopy as a part of surveillance of long-standing history of ulcerative colitis diagnosed in 1979. He is maintained on Imuran and Lialda and doing well. PROCEDURE PERFORMED: Colonoscopy with random biopsy. PREOPERATIVE DIAGNOSIS: Long-standing history of ulcerative colitis. IV sedation per Anesthesia. PROCEDURE: After informed consent was obtained, the patient, was brought into the endoscopy unit. IV sedation was administered by Anesthesia under continuous monitoring. Digital rectal examination was normal. Initially the Olympus CF-160 flexible video colonoscope was then inserted in the rectum, gradually advanced into the cecum without any difficulty. Careful examination was performed as the scope was gradually being withdrawn. Ileocecal valve and the appendiceal orifice were visualized and appeared normal. Prep was excellent. Mucosa of the cecum, ascending colon, transverse colon, descending colon, sigmoid colon, and rectum appeared normal. Biopsies were done at every 10 cm intervals from rectum to cecum. Retroflexion was performed in the rectum and no lesions were seen. The patient tolerated the procedure well. IMPRESSION: Normal-appearing colon from rectum to cecum with no evidence of active colitis or colorectal neoplasia . RECOMMENDATIONS: Findings of this examination were discussed with the patient as well as his family. He was advised to follow with the biopsy results. If there is no evidence of dysplasia he can have a repeat colonoscopy in.
[2020-12-17 09:29] VITALS: BP 123/66; PULSE 63
== END 2020-12-17 09:47 | disposition home or self-care (01) ==
LOC: ORWHC2ENDO 07:50
PROVIDERS: ATTEND Internal Medicine Gastroenterology
DX: K51.90 Ulcerative colitis, unspecified, without complications (principal); I10 Essential (primary) hypertension; E78.5 Hyperlipidemia, unspecified; Z79.899 Other long term (current) drug therapy
CPT/HCPCS: 88305; 45380; J2250; J3010; J2704

== ENCOUNTER 2021-10-04 07:21 | Observation (INO) | payer BC ==
--- NOTE | 2021-10-04 07:47 | ED ---
Chest Pain HPI - General Chief Complaint: Chest Pain Stated Complaint: chest pain Time Seen by Provider: 10/04/21 07:23 Source: patient, family, RN notes reviewed Mode of arrival: ambulatory Limitations: no limitations - History of Present Illness Initial Comments: 61-year-old male presents emergency Department with chief complaint of back and chest discomfort. Patient states that he's been having some pain to her shoulders last few days states he started getting sharp stabbing type pain in his left side of his chest did radiate back he said some neck discomfort. He initially felt the pain was related to his chronic back issues. Patient states he does have hyperlipidemia, diabetes or medications for stress test several years ago which was negative but states this was more than 10 years ago probably. Patient has no abdominal complaints. He did notice that he had some indigestion in which he's unsure this is related. Patient does admit he has ulcerative colitis but is had no recent issues with this. - Related Data Home Medications Medication Instructions Recorded Confirmed Bisoprolol-Hctz 5-6.25 mg [Ziac 1 tab PO DAILY 06/14/17 10/04/21 5-6.25] Simvastatin [Zocor] 20 mg PO HS 06/14/17 10/04/21 azaTHIOprine [Imuran] 150 mg PO DAILY 08/11/18 10/04/21 Mesalamine [Lialda] 3.6 gm PO DAILY 12/14/20 10/04/21 Cholecalciferol [Vitamin D3 (25 25 mcg PO DAILY 10/04/21 10/04/21 Mcg = 1000 Iu)] Allergies Allergy/AdvReac Type Severity Reaction Status Date / Time No Known Allergies Allergy Verified 10/04/21 08:47 Review of Systems ROS Statement: Those systems with pertinent positive or pertinent negative responses have been documented in the HPI. ROS Other: All systems not noted in ROS Statement are negative. EKG Findings - EKG Comments: EKG Findings:: EKG performed at 7:40 sinus bradycardia with rate of 59 SC 176 QRS 102 QT/QTC 436/431 Past Medical History Past Medical History: Hyperlipidemia, Hypertension Additional Past Medical History / Comment(s): ULCERATIVE COLITIS. "compromised imuune symtem" History of Any Multi-Drug Resistant Organisms: None Reported Past Surgical History: No Surgical Hx Reported Additional Past Surgical History / Comment(s): COLONOSCOPIES. Past Anesthesia/Blood Transfusion Reactions: No Reported Reaction Past Psychological History: No Psychological Hx Reported Smoking Status: Former smoker - Past Family History Mother Family Medical History: No Reported History General Exam Limitations: no limitations General appearance: alert, in no apparent distress Head exam: Present: atraumatic, normocephalic, normal inspection Eye exam: Present: normal appearance, PERRL, EOMI. Absent: scleral icterus, conjunctival injection, periorbital swelling ENT exam: Present: normal exam, normal oropharynx, mucous membranes moist Neck exam: Present: normal inspection, full ROM. Absent: tenderness, meningismus, lymphadenopathy Respiratory exam: Present: normal lung sounds bilaterally. Absent: respiratory distress, wheezes, rales, rhonchi, stridor Cardiovascular Exam: Present: regular rate, normal rhythm, normal heart sounds. Absent: systolic murmur, diastolic murmur, rubs, gallop, clicks GI/Abdominal exam: Present: soft, normal bowel sounds. Absent: distended, tende rness, guarding, rebound, rigid Back exam: Absent: CVA tenderness (R), CVA tenderness (L) Neurological exam: Present: alert Skin exam: Present: warm, dry, intact, normal color. Absent: rash Course Vital Signs 10/04/21 07:23 Temperature 97.2 F L Pulse Rate 64 Respiratory 18 Rate Blood Pressure 155/79 O2 Sat by Pulse 97 Oximetry Chest Pain MDM - MDM 61-year-old presented for chest pain. Initial workup is negative. Patient has multiple risk factors including hypertension and hyperlipidemia, former smoker. Patiently admitted for cardiology rule out. Disposition Clinical Impression: Chest pain Disposition: ADMITTED IP TO THIS HOSP Condition: Stable Referrals: Jase Soto MD [Primary Care Provider] - 1-2 days
[2021-10-04 08:18] LABS: Basophils % (A) 1 %; Eosinophils % (A) 1 %; HCT 43.1 % (39.0-53.0); HGB 14.8 gm/dL (13.0-17.5); Lymphocytes # (A) 0.9 k/uL (1.0-4.8); Lymphocytes % (A) 18 %; MCH 33.2 pg (25.0-35.0); MCHC 34.3 g/dL (31.0-37.0); MCV 96.7 fL (80.0-100.0); Mean Platelet Volume 7.8; Monocytes # (A) 0.3 k/uL (0-1.0); Monocytes % (A) 7 %; Neutrophils # (A) 3.4 k/uL (1.3-7.7); Neutrophils % (A) 71 %; Platelet Count 250 k/uL (150-450); RBC 4.45 m/uL (4.30-5.90); RDW 13.7 % (11.5-15.5); WBC 4.8 k/uL (3.8-10.6)
--- NOTE | 2021-10-04 08:23 | XR ---
EXAMINATION TYPE: XR chest 2V DATE OF EXAM: 10/04/2021 COMPARISON: NONE HISTORY: Sharp chest pain for 2 days. TECHNIQUE: Frontal and lateral views of the chest are obtained. FINDINGS: There is no focal air space opacity, pleural effusion, or pneumothorax seen. The cardiac silhouette size is within normal limits. The osseous structures are intact. IMPRESSION: No acute process.
[2021-10-04 08:34] LABS: ALT 29 U/L (4-49); AST 26 U/L (17-59); African American GFR (CKD) >90 (>60 ml/min/1.73 sqM); Albumin 4.1 g/dL (3.5-5.0); Alkaline Phosphatase 63 U/L (38-126); Anion Gap 4 mmol/L; Blood Urea Nitrogen 14 mg/dL (9-20); Calcium 9.7 mg/dL (8.4-10.2); Carbon Dioxide 26 mmol/L (22-30); Chloride 106 mmol/L (98-107); Glucose 126 mg/dL (74-99); Lipase 106 U/L (23-300); Magnesium 1.8 mg/dL (1.6-2.3); Non-African American GFR(CKD) 80 (>60 ml/min/1.73 sqM); Potassium 4.1 mmol/L (3.5-5.1); Sodium 136 mmol/L (137-145); Total Bilirubin 1.1 mg/dL (0.2-1.3); Total Protein 7.1 g/dL (6.3-8.2)
[2021-10-04 08:37] LABS: Prothrombin Time 10.5 sec (9.0-12.0)
[2021-10-04] MEDS ORDERED: HEPARIN SODIUM 1,000 UN/ML (10ML VL) IV ONE (09:08)
[2021-10-04] MEDS ORDERED: NITROGLYCERIN SL TABS 0.4 MG TAB SUBLINGUAL PRN (09:08)
[2021-10-04] MEDS ORDERED: HEPARIN SOD,PORK IN 0.45% NACL 25,000 UNIT in 0.45% NACL 1 250ML.BAG IV SCH ×2 (09:15→11:00)
[2021-10-04] MEDS ORDERED: ASPIRIN 81 MG PO STA (09:15)
[2021-10-04] MEDS ORDERED: MAG HYDROX/AL HYDROX/SIMETH 30 ML CUP PO PRN (09:49)
[2021-10-04] MEDS ORDERED: ACETAMINOPHEN TAB 325 MG TAB PO PRN (09:49)
[2021-10-04] MEDS ORDERED: ONDANSETRON 4 MG/2 ML VIAL IVP PRN (09:49)
[2021-10-04] MEDS ORDERED: NALOXONE 0.4 MG/ML 1 ML VIAL IV PRN (09:49)
--- NOTE | 2021-10-04 10:15 | CT ---
EXAMINATION TYPE: CT angio chest DATE OF EXAM: 10/04/2021 10:06 AM COMPARISON: Pain HISTORY: Chest pains CT DLP: 653.3 mGycm Automated exposure control for dose reduction was used. CONTRAST: CTA scan of the thorax is performed with IV Contrast, patient injected with 100, 12 wasted mL of Isov ue 300, pulmonary embolism protocol. . FINDINGS: LUNGS: Groundglass changes are seen posteriorly within the lungs. No pneumothorax. No pleural effusio n. No consolidative pneumonia. Paraseptal emphysema involving the right lung apex. 2 mm calcified sub pleural nodule right lower lobe. MEDIASTINUM: There is satisfactory enhancement of the pulmonary artery and its branches, there is sug gestive a small filling defect within upper lobe arterial branch axial image 53, sagittal image 124 a nd coronal image 74. There are no greater than 1 cm hilar or mediastinal lymph nodes. No pericardi al effusion is seen. The heart is enlarged. OTHER: Small hiatal hernia. Hypertrophic and degenerative changes of the spine. IMPRESSION: 1. Findings are suspicious for a tiny secondary branch pulmonary embolism anterior segment left upper lobe. 2. Groundglass changes in the lungs can be associated with respiratory atelectasis correlate clinical ly to exclude a pneumonitis.
--- NOTE | 2021-10-04 10:20 | P.HPIM ---
History of Present Illness H&P Date: 10/04/21 This is a 61-year-old male with past medical history of ulcerative colitis admitted to the hospital with chest pain that radiated to his left arm substernal on and off Review of systems and systems has been reviewed all negative and positive findings as per history of present illness Constitutional: No acute distress, conversant, pleasant Eyes: Anicteric sclerae, moist conjunctiva, no lid-lag PERRLA ENMT: NC/AT Oropharynx clear, no erythema, exudates Neck: Supple, FROM, no masses, or JVD No carotid bruits No thyromegaly Lungs: Clear to auscultation Clear to percussion Normal respiratory effort, no accessory muscle use Cardiovascular: Heart regular in rate and rhythm, No murmurs, gallops, or rubs No peripheral edema Abdominal: Soft Nontender, no guarding, rebound or rigidity Abdomen moving with respiration Normoactive bowel sounds No hepatomegaly, No splenomegaly No palpable mass No abdominal wall hernia noted Skin: Normal temperature, tone, texture, turgor No induration No subcutaneous nodules No rash, lesions No ulcers Extremities: No digital cyanosis No clubbing Pedal pulses intact and symmetrical Radial pulses intact and symmetrical Normal gait and station No calf tenderness Psychiatric:Alert and oriented to person, place and time Appropriate affect Intact judgement Neuro: Muscles Strength 5/5 in all 4 extremities Sensation to light touch grossly present throughout Cranial nerves II-XII grossly intact No focal sensory deficits Assessment and plan Chest pain with typical and atypical features we'll check computed tomography scan of the lungs we will consult cardiology and observe overnight Immunocompromised Ulcerative colitis Past Medical History Past Medical History: Hyperlipidemia, Hypertension Additional Past Medical History / Comment(s): ULCERATIVE COLITIS. "compromised imuune symtem" History of Any Multi-Drug Resistant Organisms: None Reported Past Surgical History: No Surgical Hx Reported Additional Past Surgical History / Comment(s): COLONOSCOPIES. Past Anesthesia/Blood Transfusion Reactions: No Reported Reaction Past Psychological History: No Psychological Hx Reported Smoking Status: Former smoker - Past Family History Mother Family Medical History: No Reported History Medications and Allergies Home Medications Medication Instructions Recorded Confirmed Type Bisoprolol-Hctz 5-6.25 mg [Ziac 1 tab PO DAILY 06/14/17 10/04/21 History 5-6.25] Simvastatin [Zocor] 20 mg PO HS 06/14/17 10/04/21 History azaTHIOprine [Imuran] 150 mg PO DAILY 08/11/18 10/04/21 History Mesalamine [Lialda] 3.6 gm PO DAILY 12/14/20 10/04/21 History Cholecalciferol [Vitamin D3 (25 25 mcg PO DAILY 10/04/21 10/04/21 History Mcg = 1000 Iu)] Allergies Allergy/AdvReac Type Severity Reaction Status Date / Time No Known Allergies Allergy Verified 10/04/21 08:47 Physical Exam Vitals: Vital Signs Temp Pulse Resp BP Pulse Ox 10/04/21 07:23 97.2 F L 64 18 155/79 97 Intake and Output 10/03/21 10/04/21 10/04/21 22:59 06:59 14:59 Other: Weight 104.326 kg Results CBC & Chem 7: 10/04/21 08:07 10/04/21 08:07 Labs: Abnormal Lab Results - Last 24 Hours (Table) 10/04/21 10/04/21 Range/Units 08:07 08:07 Lymphocytes # 0.9 L (1.0-4.8) k/uL Sodium 136 L (137-145) mmol/L Glucose 126 H (74-99) mg/dL
[2021-10-04] MEDS ORDERED: HEPARIN SODIUM 1,000 UN/ML (10ML VL) IV PRN (10:54)
--- NOTE | 2021-10-04 11:29 | US ---
EXAMINATION TYPE: US venous doppler duplex LE DATE OF EXAM: 10/04/2021 11:17 AM COMPARISON: CLINICAL HISTORY: r/o DVT. On IV heparin. No leg redness or swelling. Possible PE. SIDE PERFORMED: Bilateral TECHNIQUE: The lower extremity deep venous system is examined utilizing real time linear array sonog melissa with graded compression, doppler sonography and color-flow sonography. VESSELS IMAGED: Common Femoral Vein Deep Femoral Vein Greater Saphenous Vein * Femoral Vein Popliteal Vein Small Saphenous Vein * Proximal Calf Veins (* superficial vessels) Right Leg: Negative for DVT Left Leg: Negative for DVT IMPRESSION: Grayscale, color doppler, spectral doppler imaging performed of the deep veins of the lo wer extremities. There is normal flow, compressibility, vascular waveforms.
--- NOTE | 2021-10-04 12:08 | P.CRDCN ---
History of Present Illness Consult date: 10/04/21 History of present illness: HISTORY OF PRESENT ILLNESS: This is a 61-year-old male with a past medical history significant for hypertension, hyperlipidemia, and chronic back pain secondary to herniated disks. Patient does not follow with a seating and mobility technologist. We have been asked to see the patient in consultation for chest pain. Patient examined at the bedside in the emergency room. Patient states he has been having back pain for the past couple days. He reports the pain is in his upper back and radiates between his shoulder blades and up into the back of his neck. He states the pain was also wrapping around the left side and going into his armpit and left chest. Patient states he has a few herinated discs in his back and throught he pain was related to that but when the pain started to wrap around to the front, he decided to come to the hospital for evaluation. He denies any shortness of breath. Blood pressure 139/91. Telemetry reveals sinus mechanism. Patient is on room air with oxygen saturations greater than 92%. He is afebrile. EKG reveals sinus bradycardia with no signs of acute ischemia Chest xray negative for acute process Chest CTA: Findings are suspicious for a tiny secondary branch pulmonary embolism anterior segment left upper lobe. Groundglass changes and long- standing associated with respiratory atelectasis correlate clinically to exclude pneumonitis. Laboratory data: WBC 4.8. Hemoglobin 14.8. Platelet count 250. D-dimer 0.25. Sodium 136. Potassium 4.1. BUN 14. Creatinine 1.01. Magnesium 1.8. Troponin negative 1. Current home cardiac medications include simvastatin 20 mg at night and bisoprolol-hctz 5-6.25mg daily REVIEW OF SYSTEMS: At the time of my exam: CONSTITUTIONAL: Denies fever or chills. HEENT: Denies blurred vision, vision changes, or eye pain. Denies hemoptysis CARDIOVASCULAR: Denies chest pain. Denies orthopnea. Denies PND. Denies palpitations RESPIRATORY: Denies shortness of breath. GASTROINTESTINAL: Denies abdominal pain. Denies nausea or vomiting. HEMATOLOGIC: Denies bleeding disorders. GENITOURINARY: Denies any blood in urine. SKIN: Denies pruitis. Denies rash. PHYSICAL EXAM: VITAL SIGNS: Reviewed. GENERAL: Well-developed in no acute distress. HEENT: Head is normocephalic. Pupils are equal, round. Sclerae anicteric. Mucous membranes of the mouth are moist. Neck supple. No JVD or thyromegaly LUNGS: Respirations even and unlabored. Lungs essentially clear to auscultation bilaterally. HEART: Regular rate and rhythm. S1 and S2 heard. ABDOMEN: Soft. Nondistended. Nontender. EXTREMITIES: Normal range of motion. No clubbing or cyanosis. Peripheral pulses intact. No lower extremity edema NEUROLOGIC: Awake and alert. Oriented x 3. ASSESSMENT: Chest pain, atypical Back pain, acute on chronic Left upper lobe pulmonary embolism per CTA, normal d-dimer Hypertension Hyperlipidemia PLAN: Obtain 2D echo to cardiac structure and function Trend troponins CTA with possible PE. Continue IV heparin. Will obtain lower extremity doppler to assess for DVT. Per Truong LEBLANC, he spoke with Dr. Belle and no abnormalities were noted of the aorta. Further recommendations pending patient course Nurse practitioner note has been reviewed by physician. Signing provider agrees with the documented findings, assessment, and plan of care. Past Medical History Past Medical History: Hyperlipidemia, Hypertension Additional Past Medical History / Comment(s): ULCERATIVE COLITIS. "compromised imuune symtem" History of Any Multi-Drug Resistant Organisms: None Reported Past Surgical History: No Surgical Hx Reported Additional Past Surgical History / Comment(s): COLONOSCOPIES. Past Anesthesia/Blood Transfusion Reactions: No Reported Reaction Past Psychological History: No Psychological Hx Reported Smoking Status: Former smoker - Past Family History Mother Family Medical History: No Reported History Medications and Allergies Home Medications Medication Instructions Recorded Confirmed Type Bisoprolol-Hctz 5-6.25 mg [Ziac 1 tab PO DAILY 06/14/17 10/04/21 History 5-6.25] Simvastatin [Zocor] 20 mg PO HS 06/14/17 10/04/21 History azaTHIOprine [Imuran] 150 mg PO DAILY 08/11/18 10/04/21 History Mesalamine [Lialda] 3.6 gm PO DAILY 12/14/20 10/04/21 History Cholecalciferol [Vitamin D3 (25 25 mcg PO DAILY 10/04/21 10/04/21 History Mcg = 1000 Iu)] Allergies Allergy/AdvReac Type Severity Reaction Status Date / Time No Known Allergies Allergy Verified 10/04/21 08:47 Physical Exam Vitals: Vital Signs Temp Pulse Resp BP Pulse Ox 10/04/21 10:39 55 L 16 139/91 95 10/04/21 07:23 97.2 F L 64 18 155/79 97 Intake and Output 10/03/21 10/04/21 10/04/21 22:59 06:59 14:59 Other: Weight 104.326 kg Results 10/04/21 08:07 10/04/21 08:07 Cardiac Enzymes 10/04/21 10/04/21 Range/Units 08:07 08:07 AST 26 (17-59) U/L Troponin I <0.012 (0.000-0.034) ng/mL Coagulation 10/04/21 Range/Units 08:07 PT 10.5 (9.0-12.0) sec APTT 24.0 (22.0-30.0) sec CBC 10/04/21 Range/Units 08:07 WBC 4.8 (3.8-10.6) k/uL RBC 4.45 (4.30-5.90) m/uL Hgb 14.8 (13.0-17.5) gm/dL Hct 43.1 (39.0-53.0) % Plt Count 250 (150-450) k/uL Comprehensive Metabolic Panel 10/04/21 Range/Units 08:07 Sodium 136 L (137-145) mmol/L Potassium 4.1 (3.5-5.1) mmol/L Chloride 106 (98-107) mmol/L Carbon Dioxide 26 (22-30) mmol/L BUN 14 (9-20) mg/dL Creatinine 1.01 (0.66-1.25) mg/dL Glucose 126 H (74-99) mg/dL Calcium 9.7 (8.4-10.2) mg/dL AST 26 (17-59) U/L ALT 29 (4-49) U/L Alkaline Phosphatase 63 (38-126) U/L Total Protein 7.1 (6.3-8.2) g/dL Albumin 4.1 (3.5-5.0) g/dL Current Medications Generic Name Dose Route Start Last Admin Trade Name Freq PRN Reason Stop Dose Admin Acetaminophen 650 mg 10/04/21 09:49 Acetaminophen Tab 325 Mg Tab PO Q6HR PRN Mild Pain or Fever > 100.5 Al Hydroxide/Mg Hydroxide 15 ml 01/18/22 09:49 Mag Hydrox/Al Hydrox/Simeth 30 Ml Cup PO Q6HR PRN Indigestion Aspirin 325 mg 10/05/21 09:00 Aspirin 325 Mg Tab PO DAILY [facility] Atorvastatin Calcium 10 mg 10/04/21 21:00 Atorvastatin 10 Mg Tab PO HS [facility] Azathioprine 150 mg 10/05/21 09:00 Azathioprine 50 Mg Tab PO DAILY [facility] Balsalazide 2,250 mg 10/05/21 09:00 Balsalazide Disodium 750 Mg Capsule PO TID [facility] Bisoprolol Fumarate 1 each 10/05/21 09:00 Bisoprolol-Hctz 5-6.25 Mg 1 Each Tab PO DAILY [facility] Cholecalciferol 25 mcg 10/05/21 09:00 Cholecalciferol 25 Mcg (1000 Iu) Tablet PO DAILY [facility] Heparin Sodium (Porcine) 0 unit 10/04/21 10:54 Heparin Sodium 1,000 Un/Ml (10ml Vl) IV PER PROTOCOL PRN Low PTT Protocol Heparin Sodium/Sodium Chloride 250 mls @ 18.779 mls/hr 10/04/21 11:00 10/04/21 11:13 25,000 unit/ Sodium Chloride IV 18 units/kg/hr .[id number] JESSICA 18.779 mls/hr Administration Protocol 18 UNITS/KG/HR Naloxone HCl 0.2 mg 10/04/21 09:49 Naloxone 0.4 Mg/Ml 1 Ml Vial IV Q2M PRN Opioid Reversal Nitroglycerin 0.4 mg 10/04/21 09:08 Nitroglycerin Sl Tabs 0.4 Mg Tab SUBLINGUAL Q5M PRN Chest Pain Ondansetron HCl 4 mg 10/04/21 09:49 Ondansetron 4 Mg/2 Ml Vial IVP Q8HR PRN Nausea And Vomiting Intake and Output 10/03/21 10/04/21 10/04/21 22:59 06:59 14:59 Other: Weight 104.326 kg Patient Weight 10/05/21 06:59 Weight 104.326 kg 10/04/21 08:07 10/04/21 08:07
--- NOTE | 2021-10-04 12:59 | ECHOF ---
Referral Reason:chest pain MEASUREMENTS -------- HEIGHT: 182.9 cm WEIGHT: 104.3 kg BP: 155/79 RVIDd: 3.8 cm (< 3.3) IVSd: 1.3 cm (0.6 - 1.1) LVIDd: 5.2 cm (3.9 - 5.3) LVPWd: 1.0 cm (0.6 - 1.1) IVSs: 1.6 cm LVIDs: 3.5 cm LVPWs: 1.8 cm LAESV Index (A-L): 22.40 ml/m Ao Diam: 3.0 cm (2.0 - 3.7) AV Cusp: 2.0 cm (1.5 - 2.6) LA Diam: 4.1 cm (2.7 - 3.8) MV EXCURSION: 26.216 mm (> 18.000) MV EF SLOPE: 94 mm/s (70 - 150) EPSS: 0.8 cm MV E John: 0.73 m/s MV DecT: 264 ms MV A John: 0.66 m/s MV E/A Ratio: 1.10 RAP: 5.00 mmHg RVSP: 35.23 mmHg FINDINGS -------- Sinus rhythm. This was a technically adequate study. The left ventricular size is normal. There is mild concentric left ventricular hypertrophy. Overa ll left ventricular systolic function is normal with, an EF between 55 - 60 %. The right ventricle is mildly enlarged. Normal LA size by volume 22+/-6 ml/m2. The right atrial size is normal. Interatrial and interventricular septum intact. There is no evidence of aortic regurgitation. There is no evidence of aortic stenosis. No mitral regurgitation. Mild tricuspid regurgitation present. There is borderline pulmonary artery hypertension. The righ t ventricular systolic pressure, as measured by Doppler, is 35.23mmHg. Trace/mild (physiologic) pulmonic regurgitation. The aortic root size is normal. IVC Not well visulized. Echo free space represents a pericardial fat pad. There is no pericardial effusion. CONCLUSIONS -------- 1. The left ventricular size is normal. 2. There is mild concentric left ventricular hypertrophy. 3. Overall left ventricular systolic function is normal with, an EF between 55 - 60 %. 4. The right ventricle is mildly enlarged. 5. Mild tricuspid regurgitation present. 6. There is borderline pulmonary artery hypertension. 7. The right ventricular systolic pressure, as measured by Doppler, is 35.23mmHg. 8. Trace/mild (physiologic) pulmonic regurgitation. NETWORK INFRASTRUCTURE ARCHITECT: Maureen Martino RDCS
--- NOTE | 2021-10-04 16:59 | NM ---
EXAMINATION TYPE: NM pul vent and perfuse DATE OF EXAM: 10/04/2021 COMPARISON: NONE HISTORY: TECHNIQUE: Utilizing inhalation of 62.9 mCi Tc 99m DTPA aerosol and intravenous injection of 5 mCi o f Tc 99m MAA, ventilation and perfusion images are acquired post injection in multiple projections. FINDINGS: Normal radiotracer distribution is noted in the lungs. There is no evidence of mismatched defects. IMPRESSION: There is normal ventilation and perfusion imaging. There is very low probability of pulmonary embolis m.
--- NOTE | 2021-10-04 17:34 | P.CNPUL ---
History of Present Illness Consult date: 10/04/21 Requesting physician: Cary Greer Reason for consult: pulmonary embolism Chief complaint: Back pain and chest pain History of present illness: This is a 61-year-old white male with history of ulcerative colitis, patient presented to the ER mostly with chronic back pain, describes pain in the intrascapular area, mid upper back, and the patient is known to have history of herniated disks. Patient also described one episode of sudden onset of left- sided chest pain with radiation to the left shoulder a few days ago. Patient was concerned that this pain may be cardiac related. He presented to the ER, and his workup has been basically negative. A CT angiogram of the chest was done, and the radiologist raised the possibility of a small tiny pulmonary embolus in the secondary branches of the left upper lobe. Patient had no shortness of breath whatsoever. He had no pleuritic chest pain whatsoever. He had no previous history of DVT or pulmonary embolism, and his venous Doppler was negative. As a matter of fact the patient had a negative d-dimer was 0.25 on this admission. Patient was started on heparin. He was seen by cardiology on consultation, No specific cardiac recommendation was made except following troponins, obtaining a 2-D echocardiogram, and recommended treatment for presumptive pulmonary embolism. Clinically the patient had no pulmonary embolism. I reviewed the CT angiogram of the chest, and I clearly doubt that the findings, hence I recommended a VQ scan on this patient, and the VQ scan was normal. Now considering the patient has a normal VQ scan he had a negative d- dimer, and he had a negative Doppler, and he has only a suspicious tiny pulmonary embolism in the second branches of the left upper lobe, I believe the patient does not have pulmonary embolism. Hence I would recommend that the patient goes off heparin unless cardiology wanted to say on heparin. And the patient should be further evaluated by cardiology should even be considered for possible discharge home if cleared by cardiology only. Pain is definitely atypical, and cardiology to make a decision whether further cardiac workup is necessary. Review of Systems CONSTITUTIONAL: Negative. HEENT: Negative. CARDIOVASCULAR: As noted in HPI. RESPIRATORY: No shortness of breath whatsoever, chest pain as noted in HPI. GASTROINTESTINAL: Negative. HEMATOLOGIC: No previous history of DVT or pulmonary embolism. GENITOURINARY: Negative SKIN: Negative Endocrine: Negative Neurologic: Negative Psychiatric: Negative Past Medical History Past Medical History: Hyperlipidemia, Hypertension Additional Past Medical History / Comment(s): ULCERATIVE COLITIS. "compromised imuune symtem" r/t medications, chronic back pain with herniated discs mid and lumbar back. History of Any Multi-Drug Resistant Organisms: None Reported Past Surgical History: No Surgical Hx Reported Additional Past Surgical History / Comment(s): COLONOSCOPIES. Past Anesthesia/Blood Transfusion Reactions: No Reported Reaction Smoking Status: Former smoker - Past Family History Mother Family Medical History: No Reported History Additional Family Medical History / Comment(s): Pacemaker, hip replacement. Father Family Medical History: Coronary Artery Disease (CAD), CVA/TIA Additional Family Medical History / Comment(s): Father a few weeks ago Medications and Allergies Home Medications Medication Instructions Recorded Confirmed Type Bisoprolol-Hctz 5-6.25 mg [Ziac 1 tab PO DAILY 06/14/17 10/04/21 History 5-6.25] Simvastatin [Zocor] 20 mg PO HS 06/14/17 10/04/21 History azaTHIOprine [Imuran] 150 mg PO DAILY 08/11/18 10/04/21 History Mesalamine [Lialda] 3.6 gm PO DAILY 12/14/20 10/04/21 History Cholecalciferol [Vitamin D3 (25 25 mcg PO DAILY 10/04/21 10/04/21 History Mcg = 1000 Iu)] Allergies Allergy/AdvReac Type Severity Reaction Status Date / Time No Known Allergies Allergy Verified 10/04/21 08:47 Physical Exam Vitals: Vital Signs Temp Pulse Pulse Resp BP BP Pulse Ox 10/04/21 15:40 98.1 F 62 16 145/87 95 10/04/21 10:39 55 L 16 139/91 95 10/04/21 07:23 97.2 F L 64 18 155/79 97 Intake and Output 10/04/21 10/04/21 10/04/21 06:59 14:59 22:59 Other: Weight 104.326 kg Physical Exam: Revealed a 59-year-old white male in no distress, on room air. Head: Atraumatic, normocephalic. HEENT:[Neck is supple.] [No neck masses.] [No thyromegaly.] [No JVD.] Chest: [Clear throughout, no crackles, no rhonchi, no wheezes.] Cardiac Exam: [Normal S1 and S2, no S3 gallop, no murmur.] Abdomen: [Soft, nontender, no megaly, no rebound, no guarding, normal bowel sounds.] Extremities: [No clubbing, no edema, no cyanosis.] Neurological Exam: [No focal neurologic deficit.] Alert oriented 3 in no gross focal deficit Psychiatric: Normal mood affect and normal mental status examination. Skin: No rashes. Results - Laboratory Findings CBC and BMP: 10/04/21 08:07 10/04/21 08:07 PT/INR, D-dimer PT 10.5 sec (9.0-12.0) 10/04/21 08:07 INR 1.0 (<1.2) 10/04/21 08:07 D-Dimer 0.25 mg/L FEU (<0.60) 10/04/21 08:07 Abnormal lab findings: Abnormal Labs 10/04/21 10/04/21 10/04/21 08:07 08:07 14:55 Lymphocytes # 0.9 L APTT 100.6 H* Sodium 136 L Glucose 126 H - Diagnostic Findings CT scan - chest: image reviewed Additional studies: CT of the chest, VQ scan, venous Doppler, all were reviewed, and as noted in HPI. Assessment and Plan Assessment: Impression: Atypical chest pain. Negative workup for pulmonary embolism based on the fact that the patient had a negative VQ scan, negative venous Doppler, negative d-dimer, and basically negative clinical history. Patient had only a suspicious CT angiogram of the chest, even the radiologist does not seem to be certain that there is a definitive pulmonary embolism. Considering all the findings I would recommend that the patient does not need heparin unless cardiology decides to treat him with heparin for potential cardiac issues, I would recommend discharging the patient home if cleared by cardiology. Time with Patient: Greater than 30
[2021-10-04] MEDS ORDERED: ATORVASTATIN 10 MG TAB PO SCH (21:00)
[2021-10-05 03:06] VITALS: TEMP 98
[2021-10-05 08:25] VITALS: BP 163/93; PULSE 65; RESP 16
[2021-10-05] MEDS ORDERED: azaTHIOprine 50 MG TAB PO SCH (09:00)
[2021-10-05] MEDS ORDERED: CHOLECALCIFEROL 25 MCG (1000 IU) TABLET PO SCH (09:00)
[2021-10-05] MEDS ORDERED: ASPIRIN 325 MG TAB PO SCH (09:00)
[2021-10-05] MEDS ORDERED: BALSALAZIDE DISODIUM 750 MG CAPSULE PO SCH (09:00)
[2021-10-05] MEDS ORDERED: BISOPROLOL-HCTZ 5-6.25 MG 1 EACH TAB PO SCH (09:00)
[2021-10-05] MEDS ORDERED: ASPIRIN 81 MG PO SCH (09:00)
[2021-10-05 09:37] LABS: Basophils # (A) 0.03 X 10*3/uL (0.00-0.10); Basophils % (A) 0.5 %; Eosinophils # (A) 0.08 X 10*3/uL (0.04-0.35); Eosinophils % (A) 1.3 %; HCT 41.8 % (39.6-50.0); Lymphocytes # (A) 1.96 X 10*3/uL (0.90-5.00); MCH 32.1 pg (27.0-32.0); MCHC 33.5 g/dL (32.0-37.0); MCV 95.9 fL (80.0-97.0); Monocytes # (A) 0.77 X 10*3/uL (0.20-1.00); Monocytes % (A) 12.6 %; Neutrophils # (A) 3.28 X 10*3/uL (1.80-7.70); Neutrophils % (A) 53.4 %; Platelet Count 222 X 10*3/uL (140-440); RBC 4.36 X 10*6/uL (4.40-5.60); RDW 13.2 % (11.5-14.5); WBC 6.13 X 10*3/uL (4.50-10.00)
--- NOTE | 2021-10-05 09:59 | P.PN ---
Subjective Progress Note Date: 10/05/21 HISTORY OF PRESENT ILLNESS: This is a 61-year-old male with a past medical history significant for hypertension, hyperlipidemia, and chronic back pain secondary to herniated disks. Patient does not follow with a farm technician. We have been asked to see the patient in consultation for chest pain. Patient examined at the bedside in the emergency room. Patient states he has been having back pain for the past couple days. He reports the pain is in his upper back and radiates between his shoulder blades and up into the back of his neck. He states the pain was also wrapping around the left side and going into his armpit and left chest. Patient states he has a few herinated discs in his back and throught he pain was related to that but when the pain started to wrap around to the front, he decided to come to the hospital for evaluation. He denies any shortness of breath. Blood pressure 139/91. Telemetry reveals sinus mechanism. Patient is on room air with oxygen saturations greater than 92%. He is afebrile. EKG reveals sinus bradycardia with no signs of acute ischemia Chest xray negative for acute process Chest CTA: Findings are suspicious for a tiny secondary branch pulmonary embolism anterior segment left upper lobe. Groundglass changes and long- standing associated with respiratory atelectasis correlate clinically to exclude pneumonitis. Laboratory data: WBC 4.8. Hemoglobin 14.8. Platelet count 250. D-dimer 0.25. Sodium 136. Potassium 4.1. BUN 14. Creatinine 1.01. Magnesium 1.8. Troponin negative 1. Current home cardiac medications include simvastatin 20 mg at night and bisoprolol-hctz 5-6.25mg daily 10/05/2021 Patient examined this morning at the bedside. Patient denies chest pain or pressure. He denies shortness of breath. Patient had a Doppler of the lower summary performed yesterday which was negative for DVT. Patient also underwent a VQ scan which revealed low probably of pulmonary embolus and. Echocardiogram completed revealing ejection fraction 55-60%, mild tricuspid regurgitation, and borderline pulmonary artery hypertension. PHYSICAL EXAM: VITAL SIGNS: Reviewed. GENERAL: Well-developed in no acute distress. HEENT: Head is normocephalic. Pupils are equal, round. Sclerae anicteric. Mucous membranes of the mouth are moist. Neck supple. No JVD or thyromegaly LUNGS: Respirations even and unlabored. Lungs essentially clear to auscultation bilaterally. HEART: Regular rate and rhythm. S1 and S2 heard. ABDOMEN: Soft. Nondistended. Nontender. EXTREMITIES: Normal range of motion. No clubbing or cyanosis. Peripheral pulses intact. No lower extremity edema NEUROLOGIC: Awake and alert. Oriented x 3. ASSESSMENT: Chest pain, atypical Back pain, acute on chronic Left upper lobe pulmonary embolism per CTA, normal d-dimer Hypertension Hyperlipidemia PLAN: Patient was evaluated by pulmonary service and PE was thought to be unlikely. His IV heparin has been discontinued Patient is stable for discharge home today from a cardiac standpoint He is to follow up outpatient in the office. Nurse practitioner note has been reviewed by physician. Signing provider agrees with the documented findings, assessment, and plan of care. Objective - Vital Signs Vital signs: Vital Signs Temp 98.0 F 10/05/21 07:00 Pulse 65 10/05/21 07:00 Resp 16 10/05/21 07:00 BP 163/93 10/05/21 07:00 Pulse Ox 93 L 10/05/21 07:00 Intake & Output 10/04/21 10/05/21 10/05/21 18:59 06:59 18:59 Weight 104.326 kg Other: Voiding Method Toilet # Voids 1 - Labs CBC & Chem 7: 10/05/21 03:13 10/04/21 08:07 Labs: Abnormal Lab Results - Last 24 Hours (Table) 10/04/21 10/05/21 Range/Units 14:55 03:13 RBC 4.36 L (4.40-5.60) X 10*6/uL MCH 32.1 H (27.0-32.0) pg APTT 100.6 H* (22.0-30.0) sec
--- NOTE | 2021-10-05 10:07 | P.DS ---
Providers Date of admission: 10/04/21 09:17 Expected date of discharge: 10/05/21 Attending physician: Cary Greer MD Consults: 10/04/21 09:08 Consult Physician Urgent Consulting Provider: Guido Webster Consult Reason/Comments: chest pain Do you want consulting provider notified?: Yes 10/04/21 10:57 Consult Physician Urgent Consulting Provider: Wily Wiley Reason/Comments: PE Do you want consulting provider notified?: Yes Primary care physician: Jase Soto MD Hospital Course: 61-year-old male admitted to the hospital with chest pain that r esolved has been evaluated by cardiology no evidence of acute coronary syndrome also pulmonology saw the patient no evidence of PE Chest pain resolved Constitutional: No acute distress, conversant, pleasant Eyes: Anicteric sclerae, moist conjunctiva, no lid-lag PERRLA ENMT: NC/AT Oropharynx clear, no erythema, exudates Neck: Supple, FROM, no masses, or JVD No carotid bruits No thyromegaly Lungs: Clear to auscultation Clear to percussion Normal respiratory effort, no accessory muscle use Cardiovascular: Heart regular in rate and rhythm, No murmurs, gallops, or rubs No peripheral edema Abdominal: Soft Nontender, no guarding, rebound or rigidity Abdomen moving with respiration Normoactive bowel sounds No hepatomegaly, No splenomegaly No palpable mass No abdominal wall hernia noted Skin: Normal temperature, tone, texture, turgor No induration No subcutaneous nodules No rash, lesions No ulcers Extremities: No digital cyanosis No clubbing Pedal pulses intact and symmetrical Radial pulses intact and symmetrical Normal gait and station No calf tenderness Psychiatric:Alert and oriented to person, place and time Appropriate affect Intact judgement Neuro: Muscles Strength 5/5 in all 4 extremities Sensation to light touch grossly present throughout Cranial nerves II-XII grossly intact No focal sensory deficits Discharge plan Chest pain with typical and atypical features resolved follow-up with cardiology as an outpatient Question about small PE per computed tomography pulmonology ruled out PE Patient follow-up with primary care physician Patient Condition at Discharge: Stable Plan - Discharge Summary Discharge Rx Participant: No New Discharge Prescriptions: New Aspirin 81 mg PO DAILY 30 Days #30 tab Continue Simvastatin [Zocor] 20 mg PO HS Bisoprolol-Hctz 5-6.25 mg [Ziac 5-6.25 MG] 1 tab PO DAILY azaTHIOprine [Imuran] 150 mg PO DAILY Mesalamine [Lialda] 3.6 gm PO DAILY Cholecalciferol [Vitamin D3 (25 Mcg = 1000 Iu)] 25 mcg PO DAILY Discharge Medication List Bisoprolol-Hctz 5-6.25 mg [Ziac 5-6.25 MG] 1 tab PO DAILY 06/14/17 [History] Simvastatin [Zocor] 20 mg PO HS 06/14/17 [History] azaTHIOprine [Imuran] 150 mg PO DAILY 08/11/18 [History] Mesalamine [Lialda] 3.6 gm PO DAILY 12/14/20 [History] Cholecalciferol [Vitamin D3 (25 Mcg = 1000 Iu)] 25 mcg PO DAILY 10/04/21 [History] Aspirin 81 mg PO DAILY 30 Days #30 tab 10/05/21 [Rx] Follow up Appointment(s)/Referral(s): Jase Soto MD [Primary Care Provider] - 1-2 days Radha Coreas MD [STAFF PHYSICIAN] - 1 Week Discharge Disposition: HOME SELF-CARE
[2021-10-05 11:47] LABS: LDL Cholesterol,Calculated 86.9 mg/dL (0.0-131.0)
[2021-10-05 11:56] LABS: ALT 30 U/L (10-49); AST 18 U/L (14-35); African American GFR (CKD) 73.2 (60.0-200.0); Alkaline Phosphatase 59 U/L (41-126); BUN/Creat Ratio 13.11 Ratio (12.00-20.00); Calcium 9.2 mg/dL (8.7-10.3); Carbon Dioxide 24.7 mmol/L (20.0-27.5); Chloride 104 mmol/L (96-109); Globulin 2.4 g/dL (1.6-3.3); Glucose 101 mg/dL (70-110); Non-African American GFR(CKD) 63.2 (60.0-200.0); Potassium 4.1 mmol/L (3.5-5.5); Sodium 141 mmol/L (135-145); Total Protein 6.4 g/dL (6.2-8.2)
== END 2021-10-05 10:45 | disposition home or self-care (01) ==
LOC: EC 07:21 → 6NMEDSUR 09:17
PROVIDERS: ADMIT Internal Medicine; ATTEND Internal Medicine
DX: R07.9 Chest pain, unspecified (principal); R07.2 Precordial pain; D84.9 Immunodeficiency, unspecified; I11.9 Hypertensive heart disease without heart failure; I07.1 Rheumatic tricuspid insufficiency; Z20.822 Contact with and (suspected) exposure to COVID-19; K51.90 Ulcerative colitis, unspecified, without complications; E78.5 Hyperlipidemia, unspecified; K30 Functional dyspepsia; R00.1 Bradycardia, unspecified; M54.9 Dorsalgia, unspecified; G89.29 Other chronic pain; J98.11 Atelectasis; Z79.899 Other long term (current) drug therapy; Z87.891 Personal history of nicotine dependence; Z82.3 Family history of stroke; Z82.49 Family history of ischemic heart disease and other diseases of the circulatory system
CPT/HCPCS: 99285; 96376; 96365; 96366; 36415; 93005; 93306; 85379; 80061; 80053 ×2; 83690; 83735; 84484; 85025 ×2; 85610; 85730 ×2; 87635; 71046; 93970; 71275; 78582; G0378 ×2; A9540; A9567; J7500; J1644 ×2; Q9967

== ENCOUNTER → 2021-12-26 | Outpatient (CLI) | payer BC ==
[2021-12-26 11:20] LABS: Amylase 53 U/L (23-121); Lipase 67 U/L (14-60)
== END | disposition home or self-care (01) ==
LOC: LABWHC1 07:16
PROVIDERS: ATTEND Physician Assistant
DX: Z00.00 Encounter for general adult medical examination without abnormal findings (principal); K85.90 Acute pancreatitis without necrosis or infection, unspecified; R10.9 Unspecified abdominal pain
CPT/HCPCS: 36415; 82150; 83690

== ENCOUNTER → 2022-01-27 | Outpatient (CLI) | payer BC ==
[2022-01-27 22:10] LABS: Basophils # (A) 0.04 X 10*3/uL (0.00-0.10); Basophils % (A) 0.7 %; Eosinophils # (A) 0.08 X 10*3/uL (0.04-0.35); Eosinophils % (A) 1.3 %; HCT 39.4 % (39.6-50.0); HGB 13.6 g/dL (13.0-17.0); Immature Grans, Automated 0.2 %; Lymphocytes # (A) 1.74 X 10*3/uL (0.90-5.00); Lymphocytes % (A) 28.3 %; MCH 32.5 pg (27.0-32.0); MCHC 34.5 g/dL (32.0-37.0); Mean Platelet Volume 10.3 fL (9.5-12.2); Monocytes # (A) 0.72 X 10*3/uL (0.20-1.00); Monocytes % (A) 11.7 %; NRBC Per 100 WBC 0 /100 WBCS (0.0-0.0); Neutrophils # (A) 3.56 X 10*3/uL (1.80-7.70); Neutrophils % (A) 57.8 %; Platelet Count 227 X 10*3/uL (140-440); RBC 4.19 X 10*6/uL (4.40-5.60); RDW 12.2 % (11.5-14.5); WBC 6.15 X 10*3/uL (4.50-10.00)
== END | disposition home or self-care (01) ==
LOC: LABPAT 16:02
PROVIDERS: ATTEND Surgery
DX: Z01.818 Encounter for other preprocedural examination (principal)
CPT/HCPCS: 85025

== ENCOUNTER 2022-02-03 06:24 | Day surgery (SDC) | payer BC ==
[2022-02-01 18:16] VITALS: BMI 31.7
[~2022-02-03 06:24] MED LIST changes: +ACETAMINOPHEN TAB 500 MG TAB PO PRN; +DEXAMETHASONE SOD PHOSPHATE 4 MG/ML 1 ML VIAL IV ONE; +HEPARIN SODIUM,PORCINE/PF 5,000 UNIT/0.5 ML SYRINGE SQ PRN; +MIDAZOLAM 2 MG/2 ML VIAL IV PRN; +ONDANSETRON 4 MG/2 ML VIAL IVP ONE; +SCOPOLAMINE 1 MG/72 HR PATCH TRANSDERM ONE
[2022-02-03 07:00] VITALS: TEMP 97
[2022-02-03] MEDS ORDERED: HYDROmorphone 0.5 MG/0.5 ML SYRINGE IVP PRN (07:00)
[2022-02-03 07:25] LABS: Glucose,Whole Blood 114 mg/dL (75-99)
[2022-02-03] MEDS ORDERED: GLYCOPYRROLATE 0.2 MG/ML 2 ML VIAL ONE (07:43)
[2022-02-03] MEDS ORDERED: SUCCINYLCHOLINE CHLORIDE 100 MG/5 ML SYR IV ONE (07:43)
[2022-02-03] MEDS ORDERED: LIDOCAINE 2% INJ 20 MG/ML (2 ML VIAL) ONE (07:43)
[2022-02-03] MEDS ORDERED: MIDAZOLAM 2 MG/2 ML VIAL ONE (07:43)
[2022-02-03] MEDS ORDERED: HYDROmorphone (PF) 1 MG/ML ONE (07:43)
[2022-02-03] MEDS ORDERED: ROCURONIUM 10 MG/ML (5 ML VIAL) IV ONE (07:43)
[2022-02-03] MEDS ORDERED: KETOROLAC 15 MG/ML 1 ML VIAL ONE (07:43)
[2022-02-03] MEDS ORDERED: PROPOFOL 10 MG/ML 20 ML VIAL IV ONE (07:43)
[2022-02-03] MEDS ORDERED: NEOSTIGMINE 1 MG/ML 10 ML VIAL ONE (07:43)
[2022-02-03] MEDS ORDERED: ePHEDrine 50 MG/ML 1 ML VIAL ONE (07:43)
[2022-02-03] MEDS ORDERED: fentaNYL (PF) 50 MCG/ML 2 ML AMP ONE (07:43)
[2022-02-03] MEDS ORDERED: BUPIVACAINE (PF) 0.25% 30 ML VIAL SQ ONE (08:19)
[2022-02-03] MEDS ORDERED: LACTATED RINGERS 1,000 ML IV ONE ×3 (08:45→14:00)
--- NOTE | 2022-02-03 11:03 | P.OP ---
Date of Procedure: 02/03/22 Procedure(s) Performed: PREOPERATIVE DIAGNOSIS: Bilateral inguinal and umbilical hernia POSTOPERATIVE DIAGNOSIS: Same PROCEDURE: Laparoscopic da Magdalena assisted repair bilateral inguinal hernia with mesh, open repair umbilical hernia SURGEON: Dr. Pacheco ANESTHESIA: General OPERATIVE PROCEDURE DETAILS: Patient was placed in the operating table in the supine position. The patient was placed under general anesthesia. The abdomen was prepped and draped in usual sterile fashion. A small curvilinear supra umbilical incision was made. The fascia carefully dissected. The patient had a 1.5 x 1 cm umbilical hernia. The edges of the fascia were debrided. The fascia was reapproximated using 2 [id number] 0 Ethibond sutures laterally and through the center a Veress needle was advanced and the peritoneal cavity and insufflation took place to 15 mmHg. An 8 mm trocar was placed into the peritoneal cavity. 2 additional 8 mm trochars were placed in the right upper quadrant and left upper quadrant under visualization. The robotic arms were then brought in and docked into place. The fenestrated bipolar was used in the left arm and the laparoscopic natalie was utilized in the right arm. A 30 8 mm scope was used in the up position. The peritoneal cavity was inspected. The patient had indirect and direct hernias bilaterally. These were moderate to large in size. The peritoneum was incised superior to the internal inguinal ring and carried across the midline. The bladder and pre-peroneal tissues were carefully swept away from the bowel wall. At that point review able to visualize the hernias better. Both indirect inguinal hernias were medium sized. Both right and left direct inguinal hernias however were large in fact the patient had 2 defects in the direct space on the right hand side. Once the hernias were fully reduced we placed an extra large 5 x 7" Bard 3-D mid mesh primitivo aterally. These overlapped one another in the midline. These were secured to the suprapubic location using a short running absorbable 20V lock suture. The peritoneal defect was then closed using a absorbable 2-0 VLok suture. The hernia sacs and redundant preperitoneal fat were incorporated into the peritoneal closure to help prevent future recurrence. The pneumoperitoneum was then evacuated. The skin of all 3 sites was closed using a 4-0 Monocryl stitch. Skin glue was then applied. TYPE OF MESH USED: Bard 3D mid 5 x 7" LOCATION OF MESH: Preperitoneal FIXATION: 20 absorbable V lock suture PREOPERATIVE DISCUSSION ON SMOKING CESSASTION: Yes PREOPERATIVE DISCUSSION ON MORBID OBESITY: Yes PREOPERATIVE DISCUSSION ON APPROPRIATE USE OF NARCOTIC USE: Yes PREOPERATIVE EDUCATION: Multi Modal, Smoking Cessation and Weight Loss with BMI over 35. DISPOSITION: Stable to recovery room
[2022-02-03] MEDS ORDERED: TAMSULOSIN 0.4 MG CAP.ER.24H PO STA (11:23)
[2022-02-03] MEDS ORDERED: ACETAMINOPHEN TAB 325 MG TAB PO SCH (12:00)
[2022-02-03] MEDS ORDERED: IBUPROFEN 600 MG TAB PO SCH (14:00)
[2022-02-03 17:29] VITALS: BP 149/85; PULSE 71; RESP 20
== END 2022-02-03 18:07 ==
LOC: OR 06:24
PROVIDERS: ATTEND Surgery
DX: K40.20 Bilateral inguinal hernia, without obstruction or gangrene, not specified as recurrent (principal); K42.9 Umbilical hernia without obstruction or gangrene; I10 Essential (primary) hypertension; E78.5 Hyperlipidemia, unspecified; K51.90 Ulcerative colitis, unspecified, without complications; Z87.891 Personal history of nicotine dependence; Z79.899 Other long term (current) drug therapy
CPT/HCPCS: 49585; 49650; S2900; 86850; 86900; 86901

== ENCOUNTER 2024-02-01 10:01 | Day surgery (SDC) | payer BC ==
[2024-01-24 15:56] VITALS: BMI 31.1
[~2024-02-01 10:01] MED LIST changes: -ACETAMINOPHEN TAB 500 MG TAB PO PRN; -DEXAMETHASONE SOD PHOSPHATE 4 MG/ML 1 ML VIAL IV ONE; -HEPARIN SODIUM,PORCINE/PF 5,000 UNIT/0.5 ML SYRINGE SQ PRN; -MIDAZOLAM 2 MG/2 ML VIAL IV PRN; -ONDANSETRON 4 MG/2 ML VIAL IVP ONE; -SCOPOLAMINE 1 MG/72 HR PATCH TRANSDERM ONE
[2024-02-01] MEDS: LACTATED RINGERS 1,000 ML IV ONE (10:57)
[2024-02-01 11:28] VITALS: RESP 16; TEMP 97.4
[2024-02-01] MEDS ORDERED: PROPOFOL 10 MG/ML 20 ML VIAL IV ONE (11:42)
--- NOTE | 2024-02-01 12:02 | P.PCN ---
Date of Procedure: 02/01/24 Procedure(s) Performed: BRIEF HISTORY: Patient is a 63-year-old pleasant white male scheduled for an elective colonoscopy as a part of surveillance of longstanding history of ulcerative colitis diagnosed in 1979. He is maintained on azathioprine 150 mg daily as well as Lialda 3 tablets daily. Patient has been having frequent bowel movements with 3-4 bowel movements a day but no blood in the stool. PROCEDURE PERFORMED: Colonoscopy with biopsy and snare polypectomy. PREOPERATIVE DIAGNOSIS: Longstanding history of ulcerative colitis. IV sedation per Anesthesia. PROCEDURE: After informed consent was obtained, the patient, was brought into the endoscopy unit. IV sedation was administered by Anesthesia under continuous monitoring. Digital rectal examination was normal. Initially the Olympus CF-160 flexible video colonoscope was then inserted in the rectum, gradually advanced into the cecum without any difficulty. Careful examination was performed as the scope was gradually being withdrawn. Ileocecal valve and the appendiceal orifice were visualized and appeared normal. Prep was excellent. Mucosa of the cecum, ascending colon, appeared normal. The transverse colon there was a 1 cm flat polyp that was removed by snare polypectomy. Rest of the transverse colon, descending colon, appeared normal. There was active colitis with mild mucosal erythema noted in the rectum and sigmoid colon consistent with active colitis and biopsies were done from this area. The distal rectum appeared normal. Retroflexion was performed in the rectum and no lesions were seen. Biopsies were done from the cecum to rectum at every 10 cm intervals. The patient tolerated the procedure well. IMPRESSION: Mild active colitis with mucosal erythema and friability involving the proximal rectum and sigmoid colon up to 35 cm from anal verge s/p multiple biopsies 1 cm flat transverse colon polyp status post piecemeal snare polypectomy rest of the colon appeared normal RECOMMENDATIONS: Findings of this examination were discussed with the patient as well as his family. He was advised to follow-up with the biopsy results. He will continue with azathioprine 150 mg daily and increase of the ulcer to 4 tablets daily and follow-up in the office in 2 months. Recommended repeat colonoscopy in 2 years if the biopsies do not show any evidence of dysplasia..
[2024-02-01 13:23] VITALS: BP 130/68; PULSE 44
== END 2024-02-01 12:36 | disposition home or self-care (01) ==
LOC: ORWHC2ENDO 10:01
PROVIDERS: ATTEND Internal Medicine Gastroenterology
DX: D12.3 Benign neoplasm of transverse colon (principal); I10 Essential (primary) hypertension; E78.5 Hyperlipidemia, unspecified; Z87.891 Personal history of nicotine dependence; Z79.899 Other long term (current) drug therapy; Z87.19 Personal history of other diseases of the digestive system; Z95.0 Presence of cardiac pacemaker
CPT/HCPCS: 88305; 45380; 45385; J2704